=== PATIENT | female | born 1980 | race Caucasian/White ===

== ENCOUNTER 2017-11-09 10:42 | Emergency (ER) | payer OTHER ==
[~2017-11-09] VITALS: Ht 152.4 cm; Wt 96.4 kg
[~2017-11-09 10:42] MED LIST: CITA40TA12 PO; DICL75TA2 PO; FLUO40CA8 PO; FLV1 PO; LAMO25TA PO; MELA1CAP9 PO; PRED20TA PO; PRLSR20 PO; TRAZ-120 PO
[2017-11-09 10:45] VITALS: Ht 152.4 cm; Wt 96.4 kg
[2017-11-09] MEDS ORDERED: METHYLPREDNISOLONE 125 MG VIAL IV STA (11:14)
[2017-11-09] MEDS ORDERED: DiphenhydrAMINE HCL 50 MG/ML VIAL IV STA (11:14)
--- NOTE | 2017-11-09 11:32 | EMERGENCY ROOM VISIT NOTE ---
History First contact with patient: 11:02 Chief Complaint: ALLERGIC REACTION Stated Complaint: TOOTHACHE FROM EAR TO JAW, SWELLING OF TOUNGE History of Present Illness The patient is a 37 year old female who presents to the Emergency Room with complaints of an allergic reaction that started this morning. The patient was put on meloxicam for her back. She has taken a few doses throughout the course of this week. She thinks that she is experiencing a fullness in her throat and swelling of her tongue that started approximately 30 minutes after taking the medication this morning. She denies any shortness of breath. She denies any difficulty swallowing. No rash or itching. She denies any other new soaps, lotions or detergents., The patient is also reporting a toothache coming from a right lower molar for the last 4 nights. She has used Orajel with minimal relief. She denies any fever or chills. No foul drainage in the mouth. She has had a difficult time sleeping due to the pain. The pain radiates to the right ear Review of Systems 10 system review performed and negative unless noted in HPI or below Past Medical/Surgical History Medical Problems: (1) Bulging disc (2) Carpal tunnel syndrome (3) Psoriasis Surgical Problems: (1) History of cholecystectomy (2) S/P carpal tunnel release Family History FH: heart disease Hypertension Social History Smoking Status: Current Every Day Smoker Alcohol Use: none Marital Status: single Housing Status: lives alone Occupation Status: employed Current/Historical Medications Scheduled Citalopram Hydrobromide (Celexa), 40 MG PO QAM Clindamycin Hcl (Cleocin), 300 MG PO TID Cyclobenzaprine Hcl (Flexeril), 5 MG PO TID Diclofenac Sodium (Voltaren), 75 MG PO BID Fluoxetine Hcl (Prozac), 40 MG PO DAILY Folic Acid (Folic Acid), 1 MG PO DAILY Lamotrigine (Lamictal), 75 MG PO DAILY Melatonin (Melatonin), 20 MG PO HS Omeprazole (Prilosec), 20 MG PO DAILY Prednisone (Prednisone), 50 MG PO DAILY Trazodone Hcl (Desyrel), 50 MG PO HS Venlafaxine Hcl (Effexor), 150 MG PO DAILY Scheduled PRN Hydrocodone/Acetaminophen 5MG/325MG ([place] 5MG/325MG), 1-2 TABLET PO Q4H PRN for Pain Physical Exam Vital Signs Date Time Temp Pulse Resp B/P (MAP) Pulse Ox O2 Delivery O2 Flow Rate FiO2 11/09/17 14:15 37.0 78 18 130/98 97 11/09/17 13:07 97 Room Air 11/09/17 12:55 78 18 130/98 97 Room Air 11/09/17 10:45 37.0 91 17 150/100 99 Room Air Physical Exam VITALS: Vitals are noted on the nurse's note and reviewed by myself. Vital signs stable. GENERAL: 37-year-old female, in no acute distress, nondiaphoretic, well- developed well-nourished. SKIN: The skin was without rashes, erythema, edema, or bruising. HEAD: Normocephalic atraumatic. EYES: Conjunctivae without injection, sclerae without icterus. Extraocular movements intact. NOSE: Patent, turbinates without inflammation or discharge. No sinus tenderness. MOUTH: Mucous membranes moist. Tonsils are not enlarged. Pharynx without erythema or exudate. Uvula midline. Airway patent. Tongue does not deviate. No swelling of the tongue. No swelling of the oral mucosa. The right lower molar is extremely carious and fractured. The gum is slightly swollen around it. No pointing. No active drainage. NECK: Supple without nuchal rigidity. Lymphadenopathy in the submandibular chain bilaterally.. Cervical spine is nontender. No JVD. HEART: Regular rate and rhythm without murmurs gallops or rubs. LUNGS: Clear to auscultation bilaterally without wheezes, rales or rhonchi. No accessory muscle use. MUSCULOSKELETAL: No muscle atrophy, erythema, or edema noted. Strength 5/5 throughout. NEURO: Patient was alert and oriented to person place and time. Normal sensation to touch. No focal neurological deficits. Medical Decision & Procedures Laboratory Results 11/09/17 11:30 Red Blood Count 4.17, Mean Corpuscular Volume 84.9, Mean Corpuscular Hemoglobin 28.1, Mean Corpuscular Hemoglobin Concent 33.1, Mean Platelet Volume 10.9, Neutrophils (%) (Auto) 62.3, Lymphocytes (%) (Auto) 26.2, Monocytes (%) (Auto) 8.5, Eosinophils (%) (Auto) 2.1, Basophils (%) (Auto) 0.4, Neutrophils # (Auto) 4.66, Lymphocytes # (Auto) 1.96, Monocytes # (Auto) 0.64, Eosinophils # (Auto) 0.16, Basophils # (Auto) 0.03 11/09/17 11:30 Test 11/09/17 11:30 White Blood Count 7.49 K/uL (4.8-10.8) Red Blood Count 4.17 M/uL (4.2-5.4) Hemoglobin 11.7 g/dL (12.0-16.0) Hematocrit 35.4 % (37-47) Mean Corpuscular Volume 84.9 fL (80-100) Mean Corpuscular Hemoglobin 28.1 pg (25-34) Mean Corpuscular Hemoglobin Concent 33.1 g/dl (32-36) Platelet Count 248 K/uL (130-400) Mean Platelet Volume 10.9 fL (7.4-10.4) Neutrophils (%) (Auto) 62.3 % Lymphocytes (%) (Auto) 26.2 % Monocytes (%) (Auto) 8.5 % Eosinophils (%) (Auto) 2.1 % Basophils (%) (Auto) 0.4 % Neutrophils # (Auto) 4.66 K/uL (1.4-6.5) Lymphocytes # (Auto) 1.96 K/uL (1.2-3.4) Monocytes # (Auto) 0.64 K/uL (0.11-0.59) Eosinophils # (Auto) 0.16 K/uL (0-0.5) Basophils # (Auto) 0.03 K/uL (0-0.2) RDW Standard Deviation 42.0 fL (36.4-46.3) RDW Coefficient of Variation 13.6 % (11.5-14.5) Immature Granulocyte % (Auto) 0.5 % Immature Granulocyte # (Auto) 0.04 K/uL (0.00-0.02) Anion Gap 4.0 mmol/L (3-11) Est Creatinine Clear Calc Drug Dose 94.0 ml/min Estimated GFR () 100.7 Estimated GFR (Non- 86.9 BUN/Creatinine Ratio 4.8 (10-20) Calcium Level 8.5 mg/dl (8.5-10.1) Medications Administered Medications (Trade) Dose Ordered Sig/Darby Route Start Time Stop Time Status Last Admin Dose Admin Methylprednisolone Sodium Succinate (Solu-Medrol IV) 125 mg NOW STAT IV 11/09/17 11:14 11/09/17 11:16 DC 11/09/17 11:40 125 MG Diphenhydramine HCl (Benadryl Inj) 25 mg NOW STAT IV 11/09/17 11:14 11/09/17 11:16 DC 11/09/17 11:40 25 MG Acetaminophen/ Hydrocodone Bitart ([place] 5/325 Tab) 1 tab ONE STAT PO 11/09/17 12:38 11/09/17 12:39 DC 11/09/17 12:54 1 TAB ED Course Patient was seen and examined Vital signs including blood pressure were reviewed medications list was verified with patient Labs were obtained, and a saline lock was established The patient was medicated with Solu-Medrol 125 mg IV and Benadryl 25 mg IV Upon reevaluation, the patient said that her symptoms were better, but she was still complaining of tooth pain. She was ordered [place] Upon reevaluation, the pain was slightly better. She denies any swelling of her tongue. No difficulty swallowing. She was comfortable being discharged home. I reviewed discharge instructions the patient. They voiced understanding and had no further questions. Medical Decision Differential diagnosis: Allergic reaction, anxiety, anaphylaxis, angioedema, dental caries, periapical abscess, cellulitis This patient is a 37-year-old female that presents to the emergency department complaining of symptoms of an allergic reaction. She notes a fullness in the throat. She also thought that her tongue was swelling. On exam, I cannot appreciate any swelling of the oral mucosa or tongue. Airway was patent. She does have a fractured right lower molar that appears to be infected. The patient was treated with Solu-Medrol and Benadryl. She was observed for approximately 3 hours in the emergency department with no signs of significant allergic reaction. She will be put on antibiotics for her tooth. She was instructed to follow-up with a dentist as soon as possible. She also will discontinue meloxicam This chart was completed in part utilizing [employer] Voice Recognition software. Attempts were made to minimize the grammatical errors, random word insertions, pronoun errors and incomplete sentences. Any formal questions or concerns about the content, text or information contained within the body of this dictation should be directly addressed to the provider for clarification. Medication Reconcilliation Current Medication List: was personally reviewed by me Blood Pressure Screening Patient's blood pressure: Elevated blood pressure Blood pressure disposition: Did not require urgent referral Impression Primary Impression: Adverse reaction to drug Additional Impression: Pain, dental Departure Information Dispostion Home / Self-Care Condition GOOD Prescriptions Prednisone (Prednisone) 50 Mg Tab 50 MG PO DAILY for 4 Days, #4 TAB Prov: Kiley Navarro PA-C 11/09/17 Clindamycin Hcl (CLEOCIN) 300 Mg Cap 300 MG PO TID for 7 Days, #21 CAP Prov: Kiley Navarro PA-C 11/09/17 Hydrocodone/Acetaminophen 5MG/325MG ([place] 5MG/325MG) Tab 1-2 TABLET PO Q4H Y for Pain, #15 TAB For Initial Treatment Prov: Kiley Navarro PA-C 11/09/17 Referrals Courtney Robbins D.O. (PCP) Patient Instructions My [facility] Additional Instructions You were evaluated in the emergency department for an allergic reaction. This is possibly due to meloxicam. Please stop taking this. Please take the entire course of prednisone Please take Benadryl 50 mg every 8 hours for at least the next 24 hours. Then, you may take it on an as-needed basis please take the ENTIRE course of antibiotics. Please eat yogurt or take a probiotic daily with this medication. [place] 1-2 tabs every 4 hours for severe pain. Do not drink alcohol or drive while taking this medication. This may be taken with ibuprofen, but avoid Tylenol. Please continue Orajel Call your dentist first thing tomorrow morning for a follow-up appointment Please do not hesitate to return to the emergency department with any new, worsening or concerning symptoms; especially, difficulty breathing, swelling of the face, lips or tongue It was a pleasure participating in your care today. Problem Qualifiers
[2017-11-09 11:41] LABS: BASO % 0.4 %; BASO ABS # 0.03 K/uL (0-0.2); EOS % 2.1 %; EOS ABS # 0.16 K/uL (0-0.5); HEMATOCRIT 35.4 % (37-47); HEMOGLOBIN 11.7 g/dL (12.0-16.0); IG# 0.04 K/uL (0.00-0.02); LYMPH % 26.2 %; LYMPH ABS # 1.96 K/uL (1.2-3.4); MEAN CELL VOLUME 84.9 fL (80-100); MEAN CORPUSCULAR HEMOGLOBIN 28.1 pg (25-34); MEAN CORPUSCULAR HGB CONC 33.1 g/dl (32-36); MEAN PLATELET VOLUME 10.9 fL (7.4-10.4); MONO % 8.5 %; MONO ABS # 0.64 K/uL (0.11-0.59); NEUT % 62.3 %; NEUT ABS # 4.66 K/uL (1.4-6.5); PLATELET COUNT 248 K/uL (130-400); RED CELL DISTRIBUTION WIDTH CV 13.6 % (11.5-14.5); WHITE BLOOD COUNT 7.49 K/uL (4.8-10.8)
[2017-11-09] MEDS ORDERED: CYCL5TAB PO (11:47)
[2017-11-09] MEDS ORDERED: EFF75 PO (11:47)
[2017-11-09 11:57] LABS: CALCIUM 8.5 mg/dl (8.5-10.1); CREATININE 0.86 mg/dl (0.60-1.20); POTASSIUM 3.7 mmol/L (3.5-5.1)
[2017-11-09] MEDS ORDERED: HYDROCODONE/ACETAMIN 5/325MG TAB PO STA (12:38)
[2017-11-09] MEDS ORDERED: HYDR-5688 PO (13:49)
[2017-11-09] MEDS ORDERED: CLIN300C2 PO (13:49)
[2017-11-09] MEDS ORDERED: PRED50TA PO (13:50)
[2017-11-09 14:15] VITALS: BP 130/98; PULSE 78; TEMP 37; O2SAT 97
== END 2017-11-09 14:16 | disposition home or self-care (01) ==
LOC: C.EDB 10:44 → C.EDC 14:16
DX: T78.40XA Allergy, unspecified, initial encounter (principal); S02.5XXA Fracture of tooth (traumatic), initial encounter for closed fracture; X58.XXXA Exposure to other specified factors, initial encounter; K02.9 Dental caries, unspecified; R59.0 Localized enlarged lymph nodes; L40.9 Psoriasis, unspecified; F17.200 Nicotine dependence, unspecified, uncomplicated

== ENCOUNTER 2017-11-12 19:42 | Emergency (ER) | payer OTHER ==
[~2017-11-12] VITALS: Ht 152.4 cm; Wt 97.6 kg
[~2017-11-12 19:42] MED LIST changes: +CLIN300C2 PO; +CYCL5TAB PO; +EFF75 PO; +HYDR-5688 PO; -PRED20TA PO; +PRED50TA PO
[2017-11-12 19:46] VITALS: TEMP 36.3; Ht 152.4 cm; Wt 97.6 kg
--- NOTE | 2017-11-12 19:55 | EMERGENCY ROOM VISIT NOTE ---
History Report prepared by Raman: Jaciel Singh Under the Supervision of: Dr. Jose M Ramos M.D. First contact with patient: 19:49 Chief Complaint: ALLERGIC REACTION Stated Complaint: TONGUE AND THROAT SWOLLEN History of Present Illness The patient is a 37 year old white female with a past medical history of a bulging disk, carpal tunnel syndrome, psoriasis, and a cholecystectomy who presents to the ED with a cc of constant swelling to her tongue beginning 1.5 weeks ago. Positive numbness and swelling to her tongue, difficulty swallowing, shortness of breath. Pt recently starting Flexeril, Meloxicam, and Clindamycin. She stopped taking the Clindamycin and Meloxicam. Pt has had Flexeril before and did not have trouble with it. She is on Clindamycin for a tooth infection. Negative difficulty drinking, changes in cream, detergent, and diet. EMR review shows the patient was in the ED and evaluated on the . Source of History: patient Onset: 1.5 weeks ago Position: tongue Quality: other (swelling) Timing: constant Associated Symptoms: + SOB, + numbness (to her tongue) Note: Associated symptoms: difficultly swallowing Denies: trouble drinking, changes in cream, detergent, or diet Review of Systems See HPI for pertinent positives and negatives. A total of ten systems were reviewed and were otherwise negative. Past Medical & Surgical Medical Problems: (1) Bulging disc (2) Carpal tunnel syndrome (3) Psoriasis Surgical Problems: (1) History of cholecystectomy (2) S/P carpal tunnel release Family History FH: heart disease Hypertension Social History Smoking Status: Current Every Day Smoker Alcohol Use: none Marital Status: single Housing Status: lives alone Occupation Status: employed Current/Historical Medications Scheduled Citalopram Hydrobromide (Celexa), 40 MG PO QAM Diclofenac Sodium (Voltaren), 75 MG PO BID Fluoxetine Hcl (Prozac), 40 MG PO DAILY Folic Acid (Folic Acid), 1 MG PO DAILY Lamotrigine (Lamictal), 150 MG PO DAILY Melatonin (Melatonin), 20 MG PO HS Omeprazole (Prilosec), 20 MG PO DAILY Trazodone Hcl (Desyrel), 50 MG PO HS Venlafaxine Hcl (Effexor), 150 MG PO DAILY Scheduled PRN Cyclobenzaprine Hcl (Flexeril), 5 MG PO TID PRN for Muscle Spasms Allergies Coded Allergies: Penicillins (Verified Allergy, Severe, SWELLING, 11/12/17) SWELLING Cephalexin (Verified Allergy, Intermediate, DIZZINESS, 11/12/17) Sulfamethoxazole (Verified Allergy, Intermediate, 11/12/17) Trimethoprim (Verified Allergy, Intermediate, 11/12/17) BEE STING (Verified Allergy, Mild, SWELLING, 11/12/17) Allen (Verified Allergy, Mild, HIVES, 11/12/17) Sulfa Drugs (Verified Allergy, Unknown, RASH, 11/12/17) Physical Exam Vital Signs Date Time Temp Pulse Resp B/P (MAP) Pulse Ox O2 Delivery O2 Flow Rate FiO2 11/12/17 21:44 98 18 138/86 95 11/12/17 19:51 96 Room Air 11/12/17 19:46 36.3 117 18 141/89 96 Room Air Physical Exam GENERAL: Awake, alert, well-appearing, NAD HENT: Normocephalic, atraumatic. EYES: Normal conjunctiva. Sclera non-icteric. MOUTH: Poor dentition. No submandibular or sublingual swelling. No tonsillar swelling or uvular deviation. Non-stridulous. NECK: Supple. No nuchal rigidity. FROM. RESPIRATORY: CTAB, no rhonchi, wheezing, crackles CARDIAC: Tachy and regular, no MRG ABDOMEN: Soft, NTND, BS+ MSK: No chest wall TTP, no LE edema NEURO: GCS 15, CN 2-12 intact, moves all 4s on command SKIN: No rash or jaundice noted. Medical Decision & Procedures ER Provider Diagnostic Interpretation: X-ray: Per my interpretation, radiologist review. CHEST ONE VIEW PORTABLE CLINICAL HISTORY: 37 years-old Female presenting with sob. TECHNIQUE: Portable upright AP view of the chest was obtained. COMPARISON: 03/16/2015. FINDINGS: Cardiomediastinal silhouette normal. Lungs and pleural spaces clear. Osseous structures normal. Upper abdomen normal. IMPRESSION: 1. No acute cardiopulmonary disease. Electronically signed by: Rasta Leon M.D. 11/12/2017 8:14 PM Dictated Date/Time: 11/12/2017 8:14 PM Medications Administered Medications (Trade) Dose Ordered Sig/Darby Route Start Time Stop Time Status Last Admin Dose Admin Acetaminophen (Tylenol Tab) 1,000 mg ONE STAT PO 11/12/17 20:01 11/12/17 20:03 DC 11/12/17 20:18 1,000 MG Menthol (Nice Noreen) 1 noreen NOW STAT NOREEN 11/12/17 20:01 11/12/17 20:03 DC 11/12/17 20:17 24 NOREEN Dexamethasone Sodium Phosphate (Dexamethasone Inj Pf) 10 mg NOW ONCE PO 11/12/17 20:15 11/12/17 20:16 DC 11/12/17 20:18 10 MG ED Course 1950: The patient was evaluated in room B02. A complete history and physical exam was performed. 2107: I reevaluated the patient. Discussed results and discharge instructions: she verbalized understanding and agreement. The patient is ready for discharge. Medical Decision Nursing notes reviewed. Ancillary studies and prior records reviewed. The patient is a 37 year old white female with a past medical history of a bulging disk, carpal tunnel syndrome, psoriasis, and a cholecystectomy who presents to the ED with a cc of constant swelling to her tongue beginning 1.5 weeks ago. Differential diagnosis: Etiologies such as allergic reaction, anaphylaxis, urticaria, Solomon-Wilian syndrome, toxic epidermal necrolysis, erythema multiforme, cellulitis, as well as others were entertained. Patient was seen and evaluated the bedside. Patient was complaining of some throat tightening as well as some iodine aphasia. 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 The patient has no pain with neck extension. Patient has full range of motion of the neck. Patient was initially little tachycardic. Patient also states that she states that all this began when she started taking some antibiotics as well as Flexeril. Patient was given some medications and the patient did have a chest x-ray completed. Chest x-ray is clear. I did discuss that the patient should stop taking the antibiotics as well as the Flexeril. Do not notice any need for antibiotics at this time as I do not see an obvious dental infection. The patient does have some poor dentition and she is scheduled to see a dentist. Believe the patient is suitable for outpatient follow-up and treatment at this time. Patient was given strict follow-up, discharge, and return precautions. All questions were answered. Patient was deemed suitable for outpatient follow- up at this time. Patient agreed with the plan of care and was safely discharged home. Medication Reconcilliation Current Medication List: was personally reviewed by me Blood Pressure Screening Patient's blood pressure: Normal blood pressure Blood pressure disposition: Did not require urgent referral Impression Primary Impression: Throat pain Scribe Attestation The scribe's documentation has been prepared under my direction and personally reviewed by me in its entirety. I confirm that the note above accurately reflects all work, treatment, procedures, and medical decision making performed by me. Departure Information Dispostion Home / Self-Care Referrals Courtney Robbins D.O. (PCP) Forms HOME CARE DOCUMENTATION FORM, IMPORTANT VISIT INFORMATION Patient Instructions My [facility] Sore Throat - [facility] Additional Instructions Please return to the emergency department if you have worsening or recurrent symptoms not amenable to at-home treatment. Please call for a follow-up appointment with her primary care physician. Please take your medications as prescribed. If you have other concerns and/or complaints please feel free to also call your primary care physician's office or return the ED for further evaluation, management, and treatment. You may take 800 mg Ibuprofen every 6 hours as needed for pain/fever with food. You may take tylenol 1000 mg every 6 hours as needed for pain. You may take motrin and tylenol separately or at the same time. Please stop taking your antibiotics as well as the Flexeril. You have been examined and treated today on an emergency basis only. This is not a substitute for, or an effort to provide, complete comprehensive medical care. It is impossible to recognize and treat all injuries or illnesses in a single emergency department visit. It is therefore important that you follow up closely with [facility], your PCP, and/or your specialist(s). Call as soon as possible for an appointment. Thank you for your time and consideration. I look forward to speaking with you again soon. Please don't hesitate to call us if you have any questions.
[2017-11-12] MEDS ORDERED: ACETAMINOPHEN 500 MG TAB PO STA (20:01)
[2017-11-12] MEDS ORDERED: COUGH DROP (SUGAR FREE) LOZ 24 LOZ/1 BOX LOZ STA (20:01)
[2017-11-12] MEDS ORDERED: DEXAMETHASONE **PF** INJ 10 MG/ML VIAL PO ONE (20:15)
--- NOTE | 2017-11-12 20:15 | DIAGNOSTIC IMAGING REPORT ---
CHEST ONE VIEW PORTABLE CLINICAL HISTORY: 37 years-old Female presenting with sob. TECHNIQUE: Portable upright AP view of the chest was obtained. COMPARISON: 03/16/2015. FINDINGS: Cardiomediastinal silhouette normal. Lungs and pleural spaces clear. Osseous structures normal. Upper abdomen normal. IMPRESSION: 1. No acute cardiopulmonary disease. Electronically signed by: Rasta Leon M.D. 11/12/2017 8:14 PM Dictated Date/Time: 11/12/2017 8:14 PM
[2017-11-12] MEDS ORDERED: LMC/150 PO (20:49)
[2017-11-12 21:44] VITALS: BP 138/86; PULSE 98; O2SAT 95
== END 2017-11-12 21:45 | disposition home or self-care (01) ==
LOC: C.EDB 19:44
DX: R07.0 Pain in throat (principal); R47.01 Aphasia; K08.89 Other specified disorders of teeth and supporting structures; R00.0 Tachycardia, unspecified; L40.9 Psoriasis, unspecified; F17.200 Nicotine dependence, unspecified, uncomplicated; Z90.49 Acquired absence of other specified parts of digestive tract; Z88.0 Allergy status to penicillin; Z88.1 Allergy status to other antibiotic agents; Z88.2 Allergy status to sulfonamides; Z91.030 Bee allergy status; Z91.018 Allergy to other foods

== ENCOUNTER → 2018-02-23 | Outpatient (CLI) | payer OTHER ==
[~2018-02-23] MED LIST changes: -CLIN300C2 PO; -HYDR-5688 PO; -LAMO25TA PO; +LMC/150 PO; -PRED50TA PO; -TRAZ-120 PO; +TRAZ1TAB48 PO
[2018-02-23 15:45] LABS: ALBUMIN 3.9 gm/dl (3.4-5.0); ALKALINE PHOSPHATASE 58 U/L (45-117); ALT/SGPT 18 U/L (12-78); AST/SGOT 11 U/L (15-37); BLOOD UREA NITROGEN 9 mg/dl (7-18); CALCIUM 9.2 mg/dl (8.5-10.1); CARBON DIOXIDE 26 mmol/L (21-32); CREATININE 1.17 mg/dl (0.60-1.20); GLUCOSE 99 mg/dl (70-99); POTASSIUM 3.5 mmol/L (3.5-5.1); SODIUM 137 mmol/L (136-145); TOTAL PROTEIN 7.4 gm/dl (6.4-8.2)
== END | disposition home or self-care (01) ==
LOC: C.CPL 12:53
PROVIDERS: ATTEND Psychiatry & Neurology Psychiatry
DX: F31.9 Bipolar disorder, unspecified (principal); F41.1 Generalized anxiety disorder

== ENCOUNTER 2024-02-25 11:33 | Inpatient (IN) ==
--- OUTSIDE RECORDS SUMMARY | 2024-02-25 11:38 | External Medical Summary ---
Author Name Unknown Address Unknown Organization [id number]:[facility] [place] [facility] [address] [place], [place] [address] Laboratory Report Ordering Provider Test Date Status VENKATESH JIM 09/13/2023 09:35:03 Final Observation Date Value Abnormality Reference (Units ) Status WBC, Total 09/13/2023 09:35:03 3.74 Below low normal 4.00-10.80 (K/uL) Final RBC 09/13/2023 09:35:03 4.88 3.85-5.15 (M/uL) Final Hemoglobin 09/13/2023 09:35:03 13.8 12.0-15.3 (g/dL) Final HCT 09/13/2023 09:35:03 42.4 36.0-45.2 (%) Final MCV 09/13/2023 09:35:03 86.9 81.5-97.5 (fL) Final MCH 09/13/2023 09:35:03 28.3 27.0-34.0 (pg) Final MCHC 09/13/2023 09:35:03 32.5 32.0-36.0 (g/dL) Final RDW 09/13/2023 09:35:03 13.6 11.5-15.5 (%) Final Platelets 09/13/2023 09:35:03 250 140-400 (K/uL) Final MPV 09/13/2023 09:35:03 11.6 6.6-11.1 (fL) Final Nucleated erythrocytes/100 leukocytes [Ratio] in Blood by Automated count 09/13/2023 09:35:03 0 <=0 (/100 WBCs) Final Performing Location [facility] [place] [address] [place] [address]
--- OUTSIDE RECORDS SUMMARY | 2024-02-25 11:38 | External Medical Summary ---
Author Name Unknown Address Unknown Organization [id number]:[facility]ORY [facility] [address] [place] [address] Laboratory Report Ordering Provider Test Date Status VENKATESH JIM 09/13/2023 09:35:03 Final Observation Date Value Abnormality Reference (Units ) Status SYNC LEUKOCYTES IN BLOOD BY AUTOMATED COUNT 09/13/2023 09:35:03 3.74 Below low normal 4.00-10.80 (K/uL) Final Segs 09/13/2023 09:35:03 49.4 40.0-75.0 (%) Final Lymphs % 09/13/2023 09:35:03 31.6 18.0-42.0 (%) Final Monos 09/13/2023 09:35:03 15.8 Above high normal 1.0-11.0 (%) Final Eosinophils 09/13/2023 09:35:03 1.6 0.0-6.0 (%) Final Basos 09/13/2023 09:35:03 1.1 0.0-2.0 (%) Final Immature Granulocyte, Percent 09/13/2023 09:35:03 0.5 0.0-2.0 (%) Final Absolute Segs 09/13/2023 09:35:03 1.85 1.80-7.70 (K/uL) Final Lymphs, absolute 09/13/2023 09:35:03 1.18 1.00-4.80 (K/ul) Final Monos, Abs 09/13/2023 09:35:03 0.59 0.00-1.10 (K/uL) Final Eos, Abs 09/13/2023 09:35:03 0.06 0.00-0.70 (K/uL) Final Basos, Abs 09/13/2023 09:35:03 0.04 0.00-0.20 (K/uL) Final Immature Granulocytes, Number 09/13/2023 09:35:03 0.02 0.00-0.20 (K/uL) Final Performing Location [facility] [place] [address] [facility] [address]
--- OUTSIDE RECORDS SUMMARY | 2024-02-25 11:38 | External Medical Summary ---
Author Name Unknown Address Unknown Organization [id number]:[place] [place] [address] [place] [address] Laboratory Report Ordering Provider Test Date Status VENKATESH JIM 09/13/2023 09:35:03 Final Observation Date Value Abnormality Reference (Units ) Status TSH 09/13/2023 09:35:03 0.65 0.27-4.20 (uIU/mL) Final Performing Location [facility]ORY [facility] - [address] [place] [address]
--- OUTSIDE RECORDS SUMMARY | 2024-02-25 11:38 | External Medical Summary ---
Author Name Unknown Address Unknown Organization [id number]:LABORATORY [facility] - [address] [place] [address] Laboratory Report Ordering Provider Test Date Status DIANDRASTEPHIEDarci 09/13/2023 09:35:03 Final Observation Date Value Abnormality Reference (Units ) Status T4, Free 09/13/2023 09:35:03 1.0 0.9-1.7 (n g/dL) Final Performing Location LABORATORY [facility] - [address] [place] [address]
--- OUTSIDE RECORDS SUMMARY | 2024-02-25 11:38 | External Medical Summary ---
Author Name Unknown Address Unknown Organization [id number]:LABORATORY [facility] [place] - [address] [place] [address] Laboratory Report Ordering Provider Test Date Status VENKATESH JIM 09/13/2023 09:35:03 Final Observation Date Value Abnormality Reference (Units ) Status BUN 09/13/2023 09:35:03 9 6-20 (mg/dL) Final Creatinine 09/13/2023 09:35:03 1.1 Above high normal 0.5-1.0 (mg/dL) Final Glomerular filtration rate/1.73 sq M.predicted [Volume Rate/Area] in Serum, Plasma or Blood by Creatinine-based formula (CKD-EPI) 09/13/2023 09:35:03 64 >=60 (mL/min) Final eGFR is calculated based on the CKD-EPI 2020 equation SODIUM 09/13/2023 09:35:03 136 135-146 (m mol/L) Final Potassium 09/13/2023 09:35:03 4.2 3.5-5.1 (m mol/L) Final Cl 09/13/2023 09:35:03 101 98-107 (mm ol/L) Final CO2 09/13/2023 09:35:03 23 22-32 (mmo l/L) Final Anion gap 09/13/2023 09:35:03 12 7-15 (mmol /L) Final Glucose 09/13/2023 09:35:03 93 70-120 (mg /dL) Final Albumin 09/13/2023 09:35:03 4.0 3.8-5.0 (g /dL) Final AST (Aspartate aminotransferase) 09/13/2023 09:35:03 21 10-35 (U/L) Final Alk Phos 09/13/2023 09:35:03 52 35-130 (U/ L) Final Bilirubin, Total 09/13/2023 09:35:03 0.5 <=1 .2 (mg/dL) Final Calcium 09/13/2023 09:35:03 9.0 8.4-10.2 ( mg/dL) Final Protein 09/13/2023 09:35:03 6.5 6.0-8.3 (g /dL) Final ALT (Alanine aminotransferase) 09/13/2023 09:35:03 21 10-35 (U/L) Final Performing Location LABORATORY [facility] [place] - [address] [facility] [address]
--- OUTSIDE RECORDS SUMMARY | 2024-02-25 11:38 | External Medical Summary | Summary of Care ---
Author Name Unknown Organization [facility] Address [address] [place] [address] Phone [phone] Care Team Providers Care Systems Development Consultant Name Role Phone Candis Fink PA-C Primary Care Provider [phone] Reason for Visit * Reason Comments eRx-Medication Refill Encounter Details Date Type Department Care Team (Late st Contact Info) Description 12/07/2023 Refill [place] [address] [place] [address] Candis Fink PA-C [address] [place] [address] Gastroesophageal reflux disease without esophagitis Allergies Active Allergy Reactions Criticality Noted Date Comments Cephalexin 08/25/2017 Lightheaded and dizzy Meloxicam Edema Other High 11/09/2017 Penicillins 08/10/2001 Throat swelling Sulfa Antibiotics 08/10/2001 Rash documented as of this encounter (statuses as of 12/08/2023) Medications Medication Sig Dispensed Refills Start Date End Date Status ARIPiprazole (ABILIFY) 10 MG Tablet Take 1 Tablet by mouth in the morning. 0 01/30/2019 Active Clobetasol Propionate 0.05 % External Ointment (Temovate)Indicat ions:Plaque psoriasis Apply 2x daily (or more if itchy instead of scratching) to psoriasis spots on trunk/arms/legs /scalp until resolved 60 g 2 12/02/2021 Active Ketoconazole 2 % External Shampoo (Nizoral)Indicati ons:Seborrheic dermatitis of scalp Massage into scalp and rinse out after 5-10 minutes. Do 3x weekly, and can use own shampoo/conditi roderick afterwards. 120 mL 3 12/02/2021 Active Clobetasol Propionate 0.05 % External SolutionIndicatio ns:Plaque psoriasis APPLY TOPICALLY TO AREAS ON SCALP TWICE DAILY (OR MORE IF ITCHY INSTEAD OF SCRATHCHING) UNTIL RESOLVED 50 mL 0 11/07/2022 Active methylPREDNISolon e 4 MG Oral Tablet Therapy Pack (Medrol Dosepack) follow package directions 21 Tablet 0 11/24/2022 Active Fluticasone Propionate 50 MCG/ACT Nasal Suspension (Flonase) Administer 2 Sprays into each nostril in the morning. 16 g 1 11/29/2022 Active Omeprazole 20 MG Oral Capsule Delayed Release (PriLOSEC)Indicat ions:Gastroesopha geal reflux disease without esophagitis Take 1 capsule by mouth in the morning 30 Capsule 2 12/08/2023 Active Omeprazole 20 MG Oral Capsule Delayed Release (PriLOSEC)Indicat ions:Gastroesopha geal reflux disease without esophagitis Take 1 Capsule by mouth in the morning. 90 Capsule 2 11/29/2022 4 Discontinued documented as of this encounter (statuses as of 12/08/2023) Active Problems Problem Noted Date Diagnosed Date Stress incontinence 11/29/2022 Restless legs syndrome 11/29/2022 Major depressive disorder with single episode Gastroesophageal reflux disease without esophagi tis 11/25/2022 Body mass index (BMI) of 40.0 to 44.9 in adult 0 01/07/2019 Overview: Per Obesity protocol Chronic bilateral back pain 01/08/2018 Lumbar spine pain 12/01/2017 Carpal tunnel syndrome 02/19/2014 Tobacco use disorder 12/15/2003 Psoriasis Depression documented as of this encounter (statuses as of 12/08/2023) Resolved Problems Problem Noted Date Diagnosed Date Resolved Date Encounter for supervision of other normal 09/20/2005 12/29/2005 Overview: ICD-10 update of inactive term Encounter for supervision of other normal 01/05/2004 08/10/2004 Overview: ICD-10 update of inactive term Absence of menstruation 12/15/200307/31 RH ISOIMMUNIZAT-ANTEPART 12/15/200305/2005 Normal , first 08/10/200111/28 documented as of this encounter (statuses as of 12/08/2023) Immunizations Name Administration Dates Next Due TDAP (age 11 and older)(Adacel) 06/14/2013 documented as of this encounter Social History Tobacco Use Types Packs/Day Years Used Date Smoking Tobacco: Every Day Cigarettes 0.5 16 Smokeless Tobacco: Never Comments:1 pack daily Alcohol Use Standard Drinks/Week Comments No 0 (1 standard drink = 0.6 oz pur e alcohol) PHQ-2 Answer Date Recorded PHQ-2 Score -1 07/26/2018 Sex and Gender Information Value Date Recorded Sex Assigned at Not on file Gender Identity Not on file Sexual Orientation Not on file Job Start Date Occupation Industry Not on file Not on file Not on file documented as of this encounter Miscellaneous Notes * Telephone Encounter - Darron Perez PHARM Tech - 12/08/2023 2:45 PM EDT Received message from [facility] regarding patient needing appointment. Call Placed, Left message on voicemail to call back and schedule appointment. Thank you, Darron Perez Manager Of Purchasing [facility] [place] 12/08/2023, 2:45 PM * Telephone Encounter - Noelle Wilson [facility] - 12/08/2023 1:27 PM EDTSigned Prescriptions: Disp Refills Omeprazole 20 MG Oral Capsule Delayed Rele*30 Cap*2 Sig: Take 1 capsule by mouth in the morning Authorizing Provider: CANDIS FINK User: NOELLE WILSON * Telephone Encounter - Noelle Wilson RPh - 12/08/2023 1:27 PM EDT Please contact patient so that an appointment can be scheduled with her PRIMARY CARE provider. Refill authorized to hold patient over in the mean time. Last Visit: 11/29/2022 (in office), Visit date not found (telemedicine) Next Visit: Visit date not found Noelle Mercer ron Clinical Pharmacist [facility] (Formerly [facility]) [phone] documented in this encounter Plan of Treatment Health Maintenance Due Date Last Done Comments Pneumococcal Vaccine: Pediatrics (0 to 5 Years) and At-Risk Patients (6 to 64 Years) (1 of 2 - PCV) 1987 Hepatitis B (1 of 3 - 19+ 3-dose series) 2000 HPV/Co-Test 2011 Cervical Cancer Screening 02/15/2022 Pap Smear 02/15/2022 02/15/2019, 08/01, 09/20/2005, Additional history exists COVID-19 Vaccine ( - season) 2023 DTaP,Tdap,and Td Vaccines (2 - Td or Tdap) 06/14/2023 06/14/2013 Mammogram 12/23/2023 12/22/2022, 11/29, 12/07/2022, Additional history exists Influenza Vaccine (FLU shot) (Season Ended) 2024 Diabetes Screening 09/13/2026 09/13/2023, 0 09/13/2023, 12/23/2022, Additional history exists Lipid Panel 09/13/2028 09/13/2023, 11/29, 08/11/2021, Additional history exists GARDASIL-HPV IMMUNIZATION SERIES Aged Out No longer eligible based on patient's age to complete this topic MENINGOCOCCAL (MENACTRA/MENVEO) Aged Out No longer eligible based on patient's age to complete this topic documented as of this encounter Medical Devices Not on filedocumented as of this encounter Visit Diagnoses Diagnosis Gastroesophageal reflux disease without esophagitis Esophageal reflux documented in this encounter Advance Directives Latest Code Status on File Code Status Date Activated Date Inactivated Comments Full Code 10/18/2017 1:38 PM 10/18/2017 6:06 PM This order reflects the patients wishes and were consensually agreed upon. Care Teams Systems Development Consultant Relationship Specialty Start Date End Date Candis Fink PA-C [address] [facility] [place] [id number] PCP - General Physician Maintenance Mechanic Supervisor 11/29/22 documented as of this encounter
--- OUTSIDE RECORDS SUMMARY | 2024-02-25 11:38 | External Medical Summary ---
Author Name Unknown Address Unknown Organization K01:[facility] - [address] [facility] [address] Laboratory Report Ordering Provider Test Date Status VENKATESH JIM 09/13/2023 09:35:03 Final Observation Date Value Abnormality Reference (Units ) Status HbA1C 09/13/2023 09:35:03 5.4 4.0-5.6 (% ) Final The use of HbA1c to monitor glycemic status is based on normal hemoglobin and HbA composition. This test should not be used in patients with abnormal hemoglobin that affects the half life of the red blood cell or the in vivo glycation rates. Glucose, estimated average 09/13/2023 09:35:03 108 <126 (mg/dL) Final Performing Location LAB[facility]ATORY [facility] - [address] [place] [address]
--- OUTSIDE RECORDS SUMMARY | 2024-02-25 11:38 | External Medical Summary | Summary of Care ---
Author Name Unknown Organization [facility] Address [address] [place] [address] Phone [phone] Care Team Providers Care Milk Powder Grinder Name Role Phone Candis Fink PA-C Primary Care Provider [phone] Reason for Visit * Reason Comments Outpatient Testing Encounter Details Date Type Department Care Team (Late st Contact Info) Description 09/13/2023 9:30 AM EST Laboratory Laboratory, [place] [address] [place] [address] [facility] [address] [place] [address] Bipolar II disorder (HCC); Prolonged posttraumatic stress disorder; Encounter for long-term (current) use of other medications Allergies Active Allergy Reactions Criticality Noted Date Comments Cephalexin 08/25/2017 Lightheaded and dizzy Meloxicam Edema Other High 11/09/2017 Penicillins 08/10/2001 Throat swelling Sulfa Antibiotics 08/10/2001 Rash documented as of this encounter (statuses as of 09/13/2023) Medications Medication Sig Dispensed Refills Start Date End Date Status ARIPiprazole (ABILIFY) 10 MG Tablet Take 1 Tablet by mouth in the morning. 0 01/30/2019 Active Clobetasol Propionate 0.05 % External Ointment (Temovate)Indicatio ns:Plaque psoriasis Apply 2x daily (or more if itchy instead of scratching) to psoriasis spots on trunk/arms/legs/sc alp until resolved 60 g 2 12/02/2021 Active Ketoconazole 2 % External Shampoo (Nizoral)Indication s:Seborrheic dermatitis of scalp Massage into scalp and rinse out after 5-10 minutes. Do 3x weekly, and can use own shampoo/conditione r afterwards. 120 mL 3 12/02/2021 Active Clobetasol Propionate 0.05 % External SolutionIndications :Plaque psoriasis APPLY TOPICALLY TO AREAS ON SCALP TWICE DAILY (OR MORE IF ITCHY INSTEAD OF SCRATHCHING) UNTIL RESOLVED 50 mL 0 11/07/2022 Active methylPREDNISolone 4 MG Oral Tablet Therapy Pack (Medrol Dosepack) follow package directions 21 Tablet 0 11/24/2022 Active Omeprazole 20 MG Oral Capsule Delayed Release (PriLOSEC)Indicatio ns:Gastroesophageal reflux disease without esophagitis Take 1 Capsule by mouth in the morning. 90 Capsule 2 11/29/2022 Active Fluticasone Propionate 50 MCG/ACT Nasal Suspension (Flonase) Administer 2 Sprays into each nostril in the morning. 16 g 1 11/29/2022 Active documented as of this encounter (statuses as of 09/13/2023) Active Problems Problem Noted Date Diagnosed Date [...] as of this encounter (statuses as of 09/13/2023) Resolved Problems Problem Noted Date Diagnosed Date Resolved Date Encounter for supervision of other normal 09/20/2005 12/29/2005 Overview: ICD-10 update of inactive term Encounter for supervision of other normal 01/05/2004 08/10/2004 Overview: ICD-10 update of inactive term Absence of menstruation 12/15/200307/31 RH ISOIMMUNIZAT-ANTEPART 12/15/200305/2005 Normal , first 08/10/200111/28 documented as of this encounter (statuses as of 09/13/2023) Immunizations Name Administration Dates Next Due TDAP [...] on file documented as of this encounter Plan of Treatment Pending Results Name Type Priority Associated Diagnoses Date /Time CBC WITH WBC DIFFERENTIAL Lab Routine Bipolar II disorder (HCC) Prolonged posttraumatic stress disorder Encounter for long-term (current) use of other medications 09/13/2023 9:35 AM EST COMPREHENSIVE METABOLIC PANEL Lab Routine Bipolar II disorder (HCC) Prolonged posttraumatic stress disorder Encounter for long-term (current) use of other medications 09/13/2023 9:35 AM EST HEMOGLOBIN A1C Lab Routine Bipolar II disorder (HCC) Prolonged posttraumatic stress disorder Encounter for long-term (current) use of other medications 09/13/2023 9:35 AM EST LIPID PANEL WITH DIRECT LDL IF TG IS HIGH Lab Routine Bipolar II disorder (HCC) Prolonged posttraumatic stress disorder Encounter for long-term (current) use of other medications 09/13/2023 9:35 AM EST TSH Lab Routine Bipolar II disorder (HCC) Prolonged posttraumatic stress disorder Encounter for long-term (current) use of other medications 09/13/2023 9:35 AM EST T4, FREE Lab Routine Bipolar II disorder (HCC) Prolonged posttraumatic stress disorder Encounter for long-term (current) use of other medications 09/13/2023 9:35 AM EST CBC Lab Routine Bipolar II disorder (HCC) Prolonged posttraumatic stress disorder Encounter for long-term (current) use of other medications 09/13/2023 9:35 AM EST DIFFERENTIAL, AUTOMATED Lab Routine Bipolar II disorder (HCC) Prolonged posttraumatic stress disorder Encounter for long-term (current) use of other medications 09/13/2023 9:35 AM EST Health Maintenance Due Date Last Done Comments Hepatitis B (1 of 3 - 3-dose series) 1981 COVID-19 Vaccine (#1) 1981 Pneumococcal Vaccine: Pediatrics (0 to 5 Years) and At-Risk Patients (6 to 64 Years) (1 - PCV) 1987 HPV/Co-Test 2011 Depression Screening 02/16/2020 02/15/2019 Cervical Cancer Screening 02/15/2022 Pap Smear 02/15/2022 02/15/2019, 08/01, 09/20/2005, Additional history exists Influenza Vaccine (FLU shot) (#1) 2023 DTaP,Tdap,and Td Vaccines (2 - Td or Tdap) 06/14/2023 06/14/2013 Mammogram 12/23/2023 12/22/2022, 11/29, 12/07/2022, Additional history exists Diabetes Screening 12/23/2025 12/23/2022, 0 12/23/2022, 12/23/2022, Additional history exists Lipid Panel 12/24/2027 12/23/2022, 07/31, 02/25/2021, Additional history exists GARDASIL-HPV IMMUNIZATION SERIES Aged Out No longer eligible based on patient's age to complete this topic MENINGOCOCCAL (MENACTRA/MENVEO) Aged Out No longer eligible based on patient's age to complete this topic documented as of this encounter Medical Devices Not on filedocumented as of this encounter Visit Diagnoses Diagnosis Bipolar II disorder (HCC) Other bipolar disorders Prolonged posttraumatic stress disorder Posttraumatic stress disorder Encounter for long-term (current) use of other medications documented in this encounter Advance Directives Latest Code Status on File Code Status Date Activated Date Inactivated Comments Full Code 10/18/2017 1:38 PM 10/18/2017 6:06 PM This order reflects the patients wishes and were consensually agreed upon. Care Teams Milk Powder Grinder Relationship Specialty Start Date End Date Candis Fink PA-C [address] [facility] [place] [address] PCP - General Physician Admin Assistant 11/29/22 documented as of this encounter
--- OUTSIDE RECORDS SUMMARY | 2024-02-25 11:38 | External Medical Summary ---
Author Name Unknown Address Unknown Organization K01:LABORATORY [facility] - [address] [facility] [address] Laboratory Report Ordering Provider Test Date Status VENKATESH JIM 09/13/2023 09:35:03 Final Observation Date Value Abnormality Reference (Units ) Status Triglyceride 09/13/2023 09:35:03 109 <=174 ( mg/dL) Final Triglyceride Reference Range s (mg/dL):
<150 Acceptable
150-174 Borderline high
175-499 High
>=500 Very high Cholesterol 09/13/2023 09:35:03 187 <200 (mg /dL) Final Total Cholesterol Reference Ranges (mg/dL):
<200 Desirable
200-239 Borderline high
>=240 High HDL 09/13/2023 09:35:03 42 Below low normal >49 (mg/dL) Final HDL Cholesterol Reference Ra nges (mg/dL):
>=60 High (Desirable)
<50 Low (Undesirable) For Females
<40 Low (Undesirable) For Males NON-HDL CHOLESTEROL 09/13/2023 09:35:03 145 <=159 (mg/dL) Final Non-HDL Cholesterol Referenc e Range (mg/dL):
<100 Target level for high risk ASCVD patient
<130 Optimal for general population
130-159 Near optimal for general population
160-189 Borderline High
190-219 High
>=220 Very High LDL, (calculated) 09/13/2023 09:35:03 123 <= 129 (mg/dL) Final LDL Cholesterol Reference Ra nges (mg/dL):
<70 Target level for high risk ASCVD patient
<100 Optimal for general population
100-129 Near optimal for general population
130-159 Borderline high
160-189 High
>=190 Very high Performing Location LABORATORY [facility] - [address] [facility] [address]
[2024-02-25] MEDS: ONDANSETRON INJ 2 MG/ML 2 ML VIAL IV STA (12:14)
[2024-02-25] MEDS: HYDROmorphone INJ 0.5 MG/0.5 ML SYR IV PRN (12:14)
[2024-02-25 12:29] LABS: Basophils # (auto) 0.06 K/uL (0.00-0.20); Basophils % (auto) 0.6 %; Eosinophils # (auto) 0.33 K/uL (0.00-0.50); Eosinophils % (auto) 3.5 %; Immature Granulocytes # (auto) 0.04 K/uL (0.01-0.20); Immature Granulocytes % (auto) 0.4 %; Lymphocytes # (auto) 2.97 K/uL (1.20-3.40); Lymphocytes % (auto) 31.2 %; Mean Corpuscular Hemoglobin 27.7 pg (25.0-34.0); Mean Corpuscular Hgb Conc 32.5 g/dL (32.0-36.0); Mean Corpuscular Volume 85.1 fL (80.0-100.0); Mean Platelet Volume 10.5 fL (9.4-12.4); Monocytes # (auto) 0.55 K/uL (0.11-0.59); Monocytes % (auto) 5.8 %; Neutrophils # (auto) 5.56 K/uL (1.40-6.50); Neutrophils % (auto) 58.5 %; Platelet Count 353 K/uL (130-400); RDW Standard Deviation 43.3 fL (36.4-46.3); White Blood Count 9.51 K/ul (4.8-10.8)
[2024-02-25 12:41] LABS: Pregnancy Test, Serum Negative (Negative)
[2024-02-25 12:47] LABS: Albumin Globulin Ratio 1.3 (0.9-2); Albumin Level 3.9 gm/dl (3.4-5.0); BUN Creatinine Ratio 7.6 (10-20); Bilirubin,Total 0.6 mg/dl (0.2-1.0); Calcium 8.9 mg/dl (8.6-10.3); Creatinine Clr Calc Pharmacy 75.7 ml/min; Est GFR (African American) 75.9 ml/min; Est GFR (Non-African American) 65.5 ml/min; Globulin 3.1 gm/dl (2.5-4.0); Potassium 3.7 mmol/L (3.5-5.1)
--- NOTE | 2024-02-25 13:02 | XRay Report ---
XR elbow LT min 3V routine HISTORY: 43 years-old Female fall acute left elbow pain status post fall COMPARISON: None TECHNIQUE: 3 views of the left elbow FINDINGS: Mild dorsal soft tissue swelling. There is no acute fracture, dislocation or large joint effusion. IMPRESSION: No acute fracture. ACT 112: Negative or not required by law. The above report was generated using voice recognition software. It may contain grammatical, syntax o r spelling errors. Electronically signed by: Deacon Salguero M.D. 02/25/2024 1:01 PM
--- NOTE | 2024-02-25 13:03 | XRay Report ---
XR knee LT 3V HISTORY: 43 years-old Female fall, knee pain acute left knee pain status post fall COMPARISON: None TECHNIQUE: 3 views of the left knee FINDINGS: Abnormal appearance of the left tibial plateau with suspected acute nondisplaced slightly depressed a rticular fracture. Moderate sized joint effusion. Joint spaces are preserved. Soft tissue swelling is most pronounced medially. IMPRESSION: Suspected acute lateral tibial plateau fracture with joint effusion. Correlation with CT recommended. ACT 112: Negative or not required by law. The above report was generated using voice recognition software. It may contain grammatical, syntax o r spelling errors. Electronically signed by: Deacon Salguero M.D. 02/25/2024 1:02 PM
--- NOTE | 2024-02-25 13:06 | XRay Report ---
XR wrist LT min 3V routine HISTORY: 43 years-old Female fall, possible open fx acute pain left wrist status post fall COMPARISON: None TECHNIQUE: 3 views of the left wrist FINDINGS: There is an acute comminuted intra-articular displaced and angulated distal radial fracture with apex volar angulation and dorsal displacement of the proximalr 2 cm. Moderate soft tissue swelling. No ad ditional acute fracture or dislocation identified. Mild osteoarthritis. IMPRESSION: Acute comminuted, angulated and displaced intra-articular distal radial fracture. ACT 112: Negative or not required by law. The above report was generated using voice recognition software. It may contain grammatical, syntax o r spelling errors. Electronically signed by: Deacon Salguero M.D. 02/25/2024 1:05 PM
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
[2024-02-25] MEDS ORDERED: ATROPINE SULFATE 0.1 MG/ML 10ML SYR IV PRN (13:52)
[2024-02-25] MEDS ORDERED: ePHEDrine sulfate 50 MG/ML AMP IV PRN (13:52)
[2024-02-25] MEDS ORDERED: ONDANSETRON INJ 2 MG/ML 2 ML VIAL IV PRN ×2 (13:52→20:21)
--- NOTE | 2024-02-25 13:52 | Anesthesiology Consultation ---
Date of Service February 25, 2024 Assessment & Plan Chart Review Chart Review: order entry administrator initiated History Surgery Operation Date: 02/25/24 15:30 Proposed Procedures p Open Reduction Internal Fixation Radius - Gene Alexander Keller MD Height/Weight Height: 5 ft Weight: 103.5 kg Allergies Allergy/AdvReac Type Severity Reaction Status Date / Time meloxicam Allergy Severe Swelling Verified 06/26/18 11:03 of Lip/Tongue/Throat Penicillins Allergy Severe SWELLING Verified 06/26/18 11:03 cephalexin Allergy Intermediate DIZZINESS Verified 06/26/18 11:03 sulfamethoxazole Allergy Intermediate Verified 06/26/18 11:03 trimethoprim Allergy Intermediate Verified 06/26/18 11:03 bee venom protein (honey bee) Allergy Mild SWELLING Verified 06/26/18 11:03 orange Allergy Mild HIVES Verified 06/26/18 11:03 Sulfa (Sulfonamide Allergy Unknown RASH Verified 06/26/18 11:03 Antibiotics) Medications Home Medications Medication Instructions Recorded Confirmed Last Taken DICLOFENAC SODIUM (VOLTAREN) 75 mg PO BID #0 tabs 03/16/15 Unknown OMEPRAZOLE (PRILOSEC) 20 mg PO DAILY #0 caps 05/19/15 Unknown CITALOPRAM HYDROBROMIDE (CELEXA) 40 mg PO QAM ##0 09/21/17 Unknown FLUOXETINE HCL (PROZAC) 40 mg PO DAILY ##0 09/21/17 Unknown Folic Acid 1 mg PO DAILY ##0 09/21/17 Unknown MELATONIN 20 mg PO HS ##0 09/21/17 Unknown TRAZODONE HCL (Desyrel) 50 mg PO HS ##0 09/21/17 Unknown CYCLOBENZAPRINE HCL (FLEXERIL) 5 mg PO TID PRN Muscle Spasms #0 11/09/17 Unknown tabs VENLAFAXINE HCL (Effexor) 150 mg PO DAILY #0 tabs 11/09/17 Unknown LAMOTRIGINE (LAMICTAL) 150 mg PO DAILY #0 tabs 11/12/17 Unknown benztropine 1 mg tablet 1 mg PO DAILY 06/25/18 06/25/18 Unknown fluoxetine 40 mg capsule 40 mg PO QAM 06/25/18 06/25/18 Unknown folic acid 20 mg capsule 10 mg PO DAILY 06/25/18 06/25/18 Unknown lamotrigine 100 mg tablet 300 mg PO DAILY 06/25/18 06/25/18 Unknown lithium carbonate 300 mg capsule 300 mg PO BID 06/25/18 06/25/18 Unknown melatonin 10 mg tablet 10 mg PO HS 06/25/18 06/25/18 Unknown naproxen 500 mg tablet 500 mg PO BID 06/25/18 06/25/18 Unknown omeprazole 20 mg tablet,delayed 20 mg PO DAILY 06/25/18 06/25/18 Unknown release pramipexole 0.25 mg tablet 0.25 mg PO BID 06/25/18 06/25/18 Unknown (Mirapex) prazosin 2 mg capsule 2 mg PO HS 06/25/18 06/25/18 Unknown trazodone 100 mg tablet 300 mg PO HS 06/25/18 06/25/18 Unknown venlafaxine 150 mg 150 mg PO BID 06/25/18 06/25/18 Unknown capsule,extended release 24 hr ciprofloxacin HCl 500 mg tablet 500 mg PO BID #20 tabs 06/30/22 Unknown (Cipro) ondansetron HCl 4 mg tablet 4 mg PO Q6H PRN nausea and 06/30/22 Unknown vomiting #10 tabs Active Medications Generic Name Dose Route Start Last Admin Trade Name Freq PRN Reason Stop Dose Admin Hydromorphone HCl 0.5 mg 02/25/24 12:04 02/25/24 12:14 Hydromorphone Inj 0.5 Mg/0.5 Ml Syr IV 03/10/24 12:03 0.5 mg Q15M PRN Administration Pain Past Medical History Medical History Degenerative disorder of bone Bulging disc PTSD (post-traumatic stress disorder) Past Surgical History Surgical History History of cholecystectomy S/P carpal tunnel release Social History Smoking Status: Former smoker Physical Exam Vital Signs Last Vital Signs Temp 97.3 F L 02/25/24 11:43 Pulse 79 02/25/24 12:18 Resp 18 02/25/24 12:18 BP 135/93 02/25/24 11:43 Pulse Ox 90 02/25/24 12:18 O2 Del Method Room Air 02/25/24 12:18 Testing Laboratory Results 02/25/24 12:13 02/25/24 12:13
[2024-02-25] MEDS: DIPHTHER/TETAN/PERTUS Vaccine (Tdap, Adol/Adult) 0.5mL IM ONE (13:56)
--- NOTE | 2024-02-25 13:57 | CT Scan Report ---
CT knee LT wo con HISTORY: 43 years-old Female suspected tibial plateau fx on xray acute left knee pain COMPARISON: Radiographs of same day TECHNIQUE: Multiple axial CT images of the left knee were obtained without IV contrast. A dose loweri ng technique was used consistent with the principals of CORARA. FINDINGS: There is confirmation of the acute intra-articular lateral tibial plateau fracture which is comminute d with articular depression measuring up to approximately 5 mm. Longitudinal components of the fractu re extend into the lateral tibial metaphysis. No additional acute fracture or dislocation. No large d isplaced intra-articular fracture fragments are seen. Moderate sized lipohemarthrosis. No dislocation . Tendons and ligaments are not well evaluated by CT technique. IMPRESSION: 1. Confirmation of the acute comminuted lateral tibial plateau fracture with articular depression. 2. Moderate sized lipohemarthrosis. ACT 112: Negative or not required by law. The above report was generated using voice recognition software. It may contain grammatical, syntax o r spelling errors. Electronically signed by: Deacon Salguero M.D. 02/25/2024 1:56 PM
[2024-02-25] MEDS: CLINDAMYCIN/D5W 900 MG/50 ML BAG IV ONE (14:02)
--- NOTE | 2024-02-25 14:03 | CT Scan Report ---
CT wrist LT wo con HISTORY: 43 years-old Female fx. preop acute pain in left wrist status post fall COMPARISON: Wrist radiographs of same day TECHNIQUE: Multiple axial CT images of the left wrist were obtained without IV contrast. A dose lower ing technique was used consistent with the principals of LIZ. FINDINGS: Study is motion degraded. There is an acute comminuted intra-articular displaced and angulated distal radial fracture with apex volar angulation and dorsal displacement of approximately 2 cm. Moderate s oft tissue swelling. A subcentimeter fracture fragment is noted adjacent to the distal ulna. There is an equivocal acute nondisplaced distal ulnar fracture. Scaphoid appears intact. Mild osteoarthritis. IMPRESSION: 1. Acute comminuted, angulated and displaced intra-articular distal radial fracture. 2. Equivocal acute nondisplaced distal ulnar fracture. ACT 112: Negative or not required by law. The above report was generated using voice recognition software. It may contain grammatical, syntax o r spelling errors. Electronically signed by: Deacon Salguero M.D. 02/25/2024 2:01 PM
--- NOTE | 2024-02-25 14:29 | Orthopedic Consultation ---
Date of Consultation February 25, 2024 Assessment & Plan (1) Open fracture of bone of left wrist: Patient was educated regarding today's findings. Importance of irrigation and debridement with ORIF was discussed at length. She is agreeable to proceed. Written informed consent was obtained. She last ate last evening. She last drank approximately 1-1/2 hours ago and had 4 ounces of coffee with creamer. Because of the open nature of the fracture, this will be done on an emergent basis to minimize the risk for infection. Consent was obtained by Dr. Keller. The tibial plateau fracture does not require any emergent treatment. She was placed in a knee immobilizer and will be treated nonoperatively unless the fragments depress further. She will be nonweightbearing on the left leg. She may require a platform walker. The patient was placed in an Ortho-Glass splint for her wrist to stabilize during transport to the OR. Tetanus was updated in the ED. Preoperative antibiotics were given in the ED as well. Given her allergy profile, clindamycin was chosen. Supervising Physician Co-Signing Physician Notes I, Dr. Keller, saw and examined the patient. I discussed the management with my PA. I reviewed my PAs note and agree with the documented findings and attest to completing the substantive portion of medical decision making and plan of care I developed. History of Present Illness Reason for Consultation: Left wrist open distal radius fracture. Left lateral tibial plateau fracture Requesting Physician: Jeni Keller MD Attending Physician: Edilberto Brown MD History of Present Illness This 43-year-old female with a history of psoriasis, chronic low back pain, obesity, GERD, depression, and anxiety, is seen today in the ED for evaluation of her left wrist and left knee. The patient was at a friend's house with her significant other, picking up a trailer. The friend's large dog ran into her and knocked her down in the yard. She landed on her left side. She had immediate onset of pain in her left wrist and left knee. There was an obvious deformity to her left wrist. She was brought to the ED for evaluation. Films here reveal an open comminuted distal radius fracture. There is an intra- articular extension. Films also confirm a lateral tibial plateau fracture with slight depression. She has a distant history of fracture of the left wrist at approximately age 13. She has had no residual problems since then. [id number]. She denies any numbness or tingling. She is having difficulty ambulating secondary to knee pain. Allergies Allergy/AdvReac Type Severity Reaction Status Date / Time meloxicam Allergy Severe Swelling Verified 02/25/24 14:39 of Lip/Tongue/Throat Penicillins Allergy Severe SWELLING Verified 02/25/24 14:39 cephalexin Allergy Intermediate DIZZINESS Verified 02/25/24 14:39 sulfamethoxazole Allergy Intermediate Verified 02/25/24 14:39 trimethoprim Allergy Intermediate Verified 02/25/24 14:39 bee venom protein (honey bee) Allergy Mild SWELLING Verified 02/25/24 14:39 orange Allergy Mild HIVES Verified 02/25/24 14:39 Sulfa (Sulfonamide Allergy Unknown RASH Verified 02/25/24 14:39 Antibiotics) Home Medications Medication Instructions Recorded Confirmed Type aripiprazole 300 mg intramuscular 300 mg IM MONTHLY 02/25/24 02/25/24 History suspension,extended release (Abilifarlyn Maintena) omeprazole 20 mg capsule,delayed 20 mg PO DAILY PRN Heartburn 02/25/24 02/25/24 History release Patient History Medical History (Updated 02/25/24 @ 14:32 by Luigi Newell PA-C) GERD (gastroesophageal reflux disease) Psoriasis Degenerative disorder of bone Bulging disc PTSD (post-traumatic stress disorder) Surgical History (Updated 02/25/24 @ 14:32 by Luigi Newell PA-C) History of cholecystectomy S/P carpal tunnel release Family History (Updated 02/25/24 @ 14:32 by Luigi Newell PA-C) Other No pertinent family history Social History (Updated 02/25/24 @ 14:33 by Luigi Newell PA-C) Smoking Status: Former smoker Tobacco Type: Cigarettes Preferred Language: [place] Hearing Ability: Normal marital status: Life Partner Current Living Situation: Significant Other Feels Safe at Home: Yes Review of Systems Review of Systems: All systems reviewed & are unremarkable except as noted in HPI & below Physical Exam Physical Exam: General: Well-developed, well-nourished, obese middle-aged female, in no acute distress. Obvious discomfort. Laying on the bed. Alert and oriented. Skin: Warm and dry with good turgor. No rashes. The patient has a puncture maynor present on the volar surface of her left wrist with active bleeding. No bone is visible. It is in the area of her known fracture. No intra-articular effusion in the left knee. No ecchymosis. Extensive tattoos. Heart: Heart RRR. No MGR. Peripheral pulses are 2+. Lungs: The patient has expiratory rhonchi present in all sawyer. No crackles or rubs. Fair air movement. Abdomen: Obese. Bowel sounds present x 4. Soft nontender. No organomegaly. No masses. Musculoskeletal: Left knee evaluation reveals no intra-articular effusion. She has full terminal extension. Flexion to only around 45/50 degrees secondary to pain. Stable collateral ligaments with MCL and LCL stressing. No palpable defect in the patellar tendon or quadriceps tendon. She is able to perform a straight leg raise with pain. Intact motor function of the ankle. Left upper extremity evaluation reveals no pain with palpation over the clavicle, glenohumeral joint, humerus, or elbow. She has exquisite discomfort with palpation over the distal radius and distal ulna. Visible deformity is present. No pain with palpation over the metacarpals or digits. Motor function of the fingers is intact but is limited secondary to wrist pain. Thumb circumduction and opposition are intact. Neurologic: Gross sensation is intact across the upper and lower extremities by soft touch. Radial, median, and ulnar nerve functions are intact for both motor and sensory on the left arm. Results & Data Vital Signs (Past 12 Hours) Vital Signs Temp Pulse Pulse Resp BP BP Pulse Ox 02/25/24 14:00 80 18 136/82 97 02/25/24 12:18 79 18 90 02/25/24 11:43 36.3 C L 83 16 135/93 100 O2 Del Method 02/25/24 14:00 Room Air 02/25/24 12:18 Room Air 02/25/24 11:43 Room Air Laboratory Results 02/25/24 Range/Units 12:13 WBC 9.51 (4.8-10.8) K/ul RBC 4.70 (4.20-5.40) M/uL Hgb 13.0 (12.0-16.0) g/dl Hct 40.0 (37.0-47.0) % MCV 85.1 (80.0-100.0) fL MCH 27.7 (25.0-34.0) pg MCHC 32.5 (32.0-36.0) g/dL RDW Std Deviation 43.3 (36.4-46.3) fL RDW Coeff of Edna 14.0 (11.5-14.5) % Plt Count 353 (130-400) K/uL MPV 10.5 (9.4-12.4) fL Immature Gran % (Auto) 0.4 % Neut % (Auto) 58.5 % Lymph % (Auto) 31.2 % [place] % (Auto) 5.8 % Eos % (Auto) 3.5 % Baso % (Auto) 0.6 % Neut # (Auto) 5.56 (1.40-6.50) K/uL Lymph # (Auto) 2.97 (1.20-3.40) K/uL [place] # (Auto) 0.55 (0.11-0.59) K/uL Eos # (Auto) 0.33 (0.00-0.50) K/uL Baso # (Auto) 0.06 (0.00-0.20) K/uL Immature Gran # (Auto) 0.04 (0.01-0.20) K/uL Sodium 139 (136-145) mmol/L Potassium 3.7 (3.5-5.1) mmol/L Chloride 106 (98-107) mmol/L Carbon Dioxide 26 (21-32) mmol/L Anion Gap 7 (3-11) BUN 8 (6-23) mg/dl Creatinine 1.05 (0.6-1.2) mg/dl Est Cr Clr Drug Dosing 75.7 ml/min Est GFR ( Amer) 75.9 ml/min Est GFR (Non-Af Amer) 65.5 ml/min BUN/Creatinine Ratio 7.6 L (10-20) Glucose 128 H (70-99(Fasting)) mg/dl Calcium 8.9 (8.6-10.3) mg/dl Total Bilirubin 0.6 (0.2-1.0) mg/dl AST 15 (13-39) U/L ALT 14 (7-52) U/L Alkaline Phosphatase 49 (34-104) U/L Total Protein 7.0 (6.0-8.3) gm/dl Albumin 3.9 (3.4-5.0) gm/dl Globulin 3.1 (2.5-4.0) gm/dl Albumin/Globulin Ratio 1.3 (0.9-2) HCG, Qual Negative (Negative) Diagnostic Findings Radiographic imaging obtained today of the left wrist shows comminuted intra- articular distal radius fracture at the site of her open wound. Radiographic imaging of the left knee along with CT scan imaging of the left knee also confirms a lateral tibial plateau fracture with approximately 2 mm of depression. Size of the lesion is approximately 12 mm x 4.5 mm.
[2024-02-25] MEDS ORDERED: MIDAZOLAM HCL 1 MG/ML 2ML VIAL ONE (14:32)
[2024-02-25] MEDS ORDERED: LIDOCAINE 2% 2 ML VIAL/AMP(20MG/ML) INFIL ONE (14:32)
[2024-02-25] MEDS ORDERED: PROPOFOL IV EMULSION 10 MG/ML 20 ML VIAL IV ONE (14:32)
[2024-02-25] MEDS ORDERED: fentaNYL citrate PF 100 MCG/2 ML VIAL ONE (14:33)
[2024-02-25] MEDS: fentaNYL citrate PF 100 MCG/2 ML VIAL IV PRN (14:35)
[2024-02-25] MEDS ORDERED: ONDANSETRON INJ 2 MG/ML 2 ML VIAL ONE (16:21)
[2024-02-25] MEDS ORDERED: ROCURONIUM BROMIDE 10 MG/ML 5 ML VIAL IV ONE (16:22)
[2024-02-25] MEDS ORDERED: SUCCINYLCHOLINE CHLORIDE 20 MG/ML 10 ML VIAL IV ONE (16:22)
[2024-02-25] MEDS ORDERED: HYDROmorphone INJ 2 MG/ML SYR/VIAL ONE (16:51)
[2024-02-25] MEDS: LIDOCAINE 1%/EPINEPHRINE 1:100,000 50 ML VIAL ONE (18:09)
[2024-02-25] MEDS: BUPIVACAINE 0.5 % 5 MG/1 ML MPF 30ML VIAL ONE (18:09)
--- NOTE | 2024-02-25 18:42 | Post Operative Brief Note ---
Immediate Post Op Note Date of Surgery February 25, 2024 Pre & Post Diagnosis Operation Date: 02/25/24 15:30 Pre-Op Diagnosis: Left wrist open distal radius fracture. Left lateral tibial plateau fracture Post-Op Diagnosis: Left wrist open distal radius fracture. Left lateral tibial plateau fracture I identified the patient and participated in the time-out.: Yes Procedure Operation Date: 02/25/24 15:30 Actual Procedures p Irrigation and Debridement Left Wrist with Open Reduction Internal Fixation of Left Wrist Open Distal Radius Fracture(Left) - Gene Keller MD Surgeon Gene Keller MD White Lead Grinder C [id number] monge (No fellow avail) Estimated Blood Loss 20 Findings Consistent with Post-Op Diagnosis Fluids 1200 cc Anesthesia Type General Complications none
--- NOTE | 2024-02-25 18:44 | Operative Report ---
Post Operative Report Pre & Post Diagnosis Operation Date: 02/25/24 15:30 Pre-Op Diagnosis: Left wrist open, comminuted intra-articular, distal radius fracture. Left lateral tibial plateau fracture Post-Op Diagnosis: Left wrist open distal, comminuted intra-articular, radius fracture. Left lateral tibial plateau fracture I identified the patient and participated in the time-out.: Yes Procedure Operation Date: 02/25/24 15:30 Actual Procedures p Irrigation and Debridement Left Wrist with Open Reduction Internal Fixation of Left Wrist Open Distal Radius Fracture(Left) - Gene Keller MD Surgeon Gene Keller MD Food Counselor Chava Newell PA-C (No fellow avail) Estimated Blood Loss 20 Findings See Below Grade I open, comminuted, Left, 2-part intra-articular ,distal radius fracture Left knee: ROM 0-125 deg. Ligamentous exam: stable Augustin, Posterior drawer, Varus and valgus stress at 0 & 30 deg. Fluids 1200 cc Specimens n/a Anesthesia Type General Complications none Indications Patient is a 43 year old female with x-ray and clinical exam findings consistent with an open, unstable, and displaced left distal radius fracture. After a lengthy discussion with the patient regarding their treatment options, I recommended that they undergo an I&D and ORIF of her left distal radius fracture. The risk of surgery were discussed and include but not limited to: bleeding, nerve damage, infection, failure of the hardware, mal-union, non- union, continued pain, progression of arthritis, decreased activity level, and DVT. They understood all the risks and benefits and wished to proceed with surgery. The informed consent was signed. Description of Procedure IMPLANTS: 1) 2.4 mm VA Locking 2 column Volar Plate, 6 hole Head/4 hole shaft (Synthes) 2) 2.4 mm VA Locking Screws (10 mm x 3, 16 mm x 2, 18 mm x 3) Chava Newell PA-C is assisting with positioning, retracting, the entire procedure, closure, and splinting due to fellow/resident not available. PROCEDURE: The patient was taken to the Operating Room and placed in the supine position on the operating table. After general anesthetic was administered a multidisciplinary time-out was performed identifying the patient and my initials on the left upper limb as the correct and operative limb. The patient had been given 900 milligrams of intravenous Clindamycin was given in the ED. The splint was removed. The left upper extremity was prepped and draped in the standard sterile fashion. The open wound and the planned extension as well as the planned incision was marked volarly ulnar to the radial artery. The wound and planned incisions were injected with a 50:50 mixture of 1% Lidocaine plain and 0.5% Marcaine with epi for a total of 10cc. The limb was then exsanguinated by gravity for 3 minutes before inflating the tourniquet to 250mmHg. The 1cm wound was extended distally and proximally ~ 1 cm. The wound was copiously irrigated with 1L Normal Saline. The planned incision was made and carried to the FCR. The sheath was incised and the FCR displaced radially to allow for the floor to be incised. Blunt dissection allowed exposure of the Pronator Quadratus, which was torn due to the trauma of the injury. The fracture fragments were debrided to allow for the best reduction with combination of freer, dental pick, [place], irrigation and suction.Several of some of the small fragments were removed. The brachioradialis was released off the radial styloid fragment. A pointed reduction clap was used to reduce was used to reduce the intra-articular portion and a K-wire was placed from radial proximal to the distal Ulnar. A reduction maneuver was performed.A cortical screw was placed in the oblong hole proximally. Fluoroscopy was used to confirm the reduced fracture and the plates proper placement. The cortical screw was loosened and K-wires were used to hold the plate in place distally. A cortical screw was placed in the 1st row radially to reduce the plate to the distal fragments. Locking screwed were placed in the distal holes excluding one distal hole overlying the intra-articular fracture. The proximal portion of the plate was reduced to the main proximal fragment and the cortical screw was tightened, recreating the volar tilt. The 3 remaining locking holes proximally were placed. The cortical screws were removed and the distal one was replaced with a locking screw in the standard fashion. The wounds were copiously irrigated. The void was filled with dbx putty and bone chips from the removed comminuted frgments. Final x-rays were taken showing near anatomic reduction. The Pronator Quadratus was closed over the plate distally with 3-0 Vicryl. The tourniquet was deflated. Hemostasis was well maintained. The skin was closed with 3-0 Nylon using vertical and horizontal mattress stitch. The limb was cleaned and dried. The incision was covered with Xeroform, 4x4's, ADB, sterile cast padding a resting volar splint and MIGUEL bandage. The sponge and needle counts were correct. POST-OP INSTRUCTIONS. The patient will be admitted to Med/Surg for 48 hours IV antibiotics. Pain medication will be given. DVT prophylaxis with SCD's and start Lovenox tomorrow. PT/OT, will need Platform walker. No heavy lifting LUE, may place weight through the forearm, NWB LLE. D/C planning. I attest to the content of the Intraoperative Record and any orders documented therein. Any exceptions are noted below.
--- NOTE | 2024-02-25 18:47 | Fluoroscopy Report ---
FL wrist LT 2V CLINICAL HISTORY: LEFT WRIST ORIF COMPARISON STUDY: CT of same day FLUOROSCOPY TIME: 16.8 seconds FLUOROSCOPY IMAGES: 2 EXPOSURE DOSE: 0.38 mGy FINDINGS: Status post placement of plate and screw fusion fixating the acute comminuted intra-articul ar distal radial fracture with near-anatomic alignment. Expected postoperative soft tissue swelling w ith deep tissue air. IMPRESSION: Fluoroscopic assistance as above. ACT 112: Negative or not required by law. Electronically signed by: Deacon Salguero M.D. 02/25/2024 6:46 PM
[2024-02-25] MEDS: fentaNYL citrate PF 100 MCG/2 ML VIAL ONE ×2 (19:00→19:27)
--- NOTE | 2024-02-25 19:56 | Anesthesiology Progress Note ---
Date of Service February 25, 2024 Anesthesia Post Procedure Vital Signs Vital Signs: Temp Pulse Pulse Pulse Resp BP BP 02/25/24 19:45 79 13 134/77 02/25/24 19:35 77 13 137/80 02/25/24 19:25 88 17 121/87 02/25/24 19:15 89 17 129/79 02/25/24 19:05 93 H 18 151/92 H 02/25/24 18:55 36.4 C L 96 H 18 141/99 H 02/25/24 15:19 81 20 126/89 02/25/24 14:37 75 14 02/25/24 14:00 80 18 136/82 02/25/24 12:18 79 18 02/25/24 11:43 36.3 C L 83 16 135/93 Pulse Ox O2 Del Method O2 Flow Rate 02/25/24 19:45 100 Nasal Cannula 2 02/25/24 19:35 99 Nasal Cannula 4 02/25/24 19:25 97 Nasal Cannula 4 02/25/24 19:15 96 Oxymask 4 02/25/24 19:05 94 Oxymask 4 02/25/24 18:55 96 Oxymask 6 02/25/24 15:19 97 Room Air 02/25/24 14:37 93 Room Air 02/25/24 14:00 97 Room Air 02/25/24 12:18 90 Room Air 02/25/24 11:43 100 Room Air Pain Intensity Left Wrist: Pain Intensity: 6 Transfer of Care Handoff Completed per policy Notes Mental Status: alert / awake / arousable and participated in evaluation Patient Amnestic to Procedure: Yes Nausea / Vomiting: adequately controlled Pain: adequately controlled Airway Patency, RR, SpO2: stable & adequate BP & HR: stable & adequate Hydration State: stable & adequate Anesthetic Complications: no major complications apparent and Pt Satisfied with anesthetic care
--- NOTE | 2024-02-25 20:15 | Operative Report ---
Post Operative Report Pre & Post Diagnosis Operation Date: 02/25/24 15:30 Pre-Op Diagnosis: Left wrist open distal radius fracture. Left lateral tibial plateau fracture Post-Op Diagnosis: Left wrist open distal radius fracture. Left lateral tibial plateau fracture I identified the patient and participated in the time-out.: Yes Procedure Operation Date: 02/25/24 15:30 Actual Procedures p Irrigation and Debridement Left Wrist with Open Reduction Internal Fixation of Left Wrist Open Distal Radius Fracture(Left) - Gene Keller MD Surgeon Jeni Keller MD Furniture Finisher Helper Chava Newell PA-C (No fellow avail) Estimated Blood Loss 20 Findings Consistent with Post-Op Diagnosis See operative report Specimens None Drains None Complications none Disposition Accompanied Patient To Recovery: Yes Indications This 43-year-old female presented to the ED after a ground-level fall when she was knocked over by a friend's dog. She had immediate onset of pain. The patient was evaluated in the ED and found to have a comminuted intra-articular open distal radius fracture. Treatment options were discussed. She elected to proceed with surgical intervention in hopes of improving her pain and function. Preoperative imaging was obtained. Description of Procedure The patient was taken the operating room where she was given general anesthesia. She was prepped and draped in the usual sterile fashion. Please see Dr. Keller's operative report for specifics of the procedure. I was present for the entire case from initial patient positioning through final wound closure. Assistance was provided in tissue retraction, hemostasis, fracture reduction, hardware placement, final wound closure, and postsurgical splinting. She was taken to the ICU recovery room in satisfactory condition. I attest to the content of the Intraoperative Record and any orders documented therein. Any exceptions are noted below.
[2024-02-25] MEDS ORDERED: NALOXONE HCL 0.4 MG/1 ML VIAL/CARP IV PRN (20:21)
[2024-02-25] MEDS ORDERED: MAGNESIUM HYDROXIDE SUSP 30 ML UDC PO PRN (20:21)
[2024-02-25] MEDS ORDERED: METOCLOPRAMIDE HCL INJ 5 MG/ML 2 ML VIAL IV PRN (20:21)
[2024-02-25] MEDS ORDERED: bisacodyL 10 MG SUPP PR PRN (20:21)
[2024-02-25] MEDS ORDERED: diphenhydrAMINE 50 MG/ML VIAL IV PRN (20:21)
[2024-02-25] MEDS ORDERED: HYDROmorphone INJ 0.5 MG/0.5 ML SYR IV PRN (20:21)
[2024-02-25] MEDS ORDERED: ALUMINUM/MAGNESIUM SUSP 30 ML UDC PO PRN (20:21)
[2024-02-25] MEDS ORDERED: PANTOprazole 40 MG TAB PO PRN (20:23)
--- NOTE | 2024-02-25 21:32 | Hospitalist Consultation ---
Date of Consultation February 25, 2024 Assessment & Plan (1) Open fracture of bone of left wrist: Final Assessment and Recommendations as follows : Traumatic left radial fracture status post surgery Traumatic left tibia fracture mood disorder, stable ongoing tobacco abuse Analgesia Nicotine patch as needed DVT prophylaxis. Lovenox subcu as per postop orders Thank you very much for this consultation. Dr. Rodriguez will follow patient's progress. Text document was generated using Kili voice recognition software. It may contain grammatical or spelling errors. Kindly contact undersigned for clarification of any documentation item in question. History of Present Illness Reason for Consultation: medical management Requesting Physician: Dr. Keller/Luigi Newell PA-C Attending Physician: Gene Keller MD History of Present Illness PCP : Candis Fink PA-C History obtained from patient and records. Medical history significant for GERD, mood disorder, RLS, ongoing tobacco abuse. Patient got knocked down on her yard by friend's large dog resulting in patient landing on her left side. Painful deformity and open wound on left wrist. No head trauma, LOC, chest pain, SOB. Patient brought to [facility] for evaluation. Patient subsequently admitted by Orthopedics service for traumatic distal left radius and left lateral tibial plateau fracture. Patient underwent urgent debridement of left distal radius fracture. Patient currently comfortable postop. Denies chest pain, SOB. Medical History as above Surgical History : Carpal tunnel surgery, dental surgery, wrist surgery, foot/toe surgery, BTL, cholecystectomy Family History : Heart disease, breast cancer, [place]'s disease, eczema, bronchial asthma Personal/Social history : Half pack daily, no EtOH intake, factory employee Allergies Allergy/AdvReac Type Severity Reaction Status Date / Time meloxicam Allergy Severe Swelling Verified 02/25/24 14:39 of Lip/Tongue/Throat Penicillins Allergy Severe SWELLING Verified 02/25/24 14:39 cephalexin Allergy Intermediate DIZZINESS Verified 02/25/24 14:39 sulfamethoxazole Allergy Intermediate Verified 02/25/24 14:39 trimethoprim Allergy Intermediate Verified 02/25/24 14:39 bee venom protein (honey bee) Allergy Mild SWELLING Verified 02/25/24 14:39 orange Allergy Mild HIVES Verified 02/25/24 14:39 Sulfa (Sulfonamide Allergy Unknown RASH Verified 02/25/24 14:39 Antibiotics) Home Medications Medication Instructions Recorded Confirmed Type aripiprazole 300 mg intramuscular 300 mg IM MONTHLY 02/25/24 02/25/24 History suspension,extended release (Woody Castro) omeprazole 20 mg capsule,delayed 20 mg PO DAILY PRN Heartburn 02/25/24 02/25/24 History release Patient History Medical History (Updated 02/25/24 @ 14:32 by Luigi Newell PA-C) GERD (gastroesophageal reflux disease) Psoriasis Degenerative disorder of bone Bulging disc PTSD (post-traumatic stress disorder) Surgical History (Updated 02/25/24 @ 14:32 by Luigi Newell PA-C) History of cholecystectomy S/P carpal tunnel release Family History (Updated 02/25/24 @ 14:32 by Luigi Newell PA-C) Other No pertinent family history Social History (Updated 02/25/24 @ 14:33 by Luigi Newell PA-C) Smoking Status: Current every day smoker Tobacco Type: Cigarettes Cigarettes Per Day: 1 pack; Second Hand Exposure: Yes (as child); Do You Dip or Chew Tobacco: No; Hx Alcohol Use: Yes Alcohol type: hard liquor Hx Substance Use: Yes Last Used Substance: Days (ago) Last Used Substance Other:: "last night" Substance Use Type Other:: medical marijuana pt Preferred Language: Occitan Communication Ability: Effective Hearing Ability: Normal 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 Beliefs That Will Affect Care: None marital status: Life Partner Current Living Situation: Significant Other Other Information That Helps Us Care for You: No Feels Safe at Home: Yes Safety Concerns: Feels Safe At This Time Assistive Devices: None Review of Systems Review of Systems: As per HPI, all other systems reviewed and negative Physical Exam Physical Exam: GENERAL: Comfortable, morbidly obese, pleasant, no respiratory distress SKIN: Normal color, warm HEENT: [place] palpebral conjunctivae, no ptosis, dry buccal mucosa NECK : Supple, short neck, no tenderness CHEST : Decreased breath sounds, occasional expiratory wheezes, no tenderness HEART : RRR, no obvious murmurs ABDOMEN: Some distention, nontender EXTREMITIES : Bilateral LE swelling without tenderness, LUE splint/dressing in place NEUROLOGIC : Coherent, no facial asymmetry, no other gross focality Results & Data Results & Data Vital Signs (Past 12 Hours) Vital Signs Temp Pulse Pulse Pulse Pulse Resp BP 02/25/24 20:51 37.1 C 82 18 02/25/24 20:40 36.9 C 83 18 02/25/24 19:55 36.9 C 80 20 02/25/24 19:45 79 13 02/25/24 19:35 77 13 02/25/24 19:25 88 17 02/25/24 19:15 89 17 02/25/24 19:05 93 H 18 02/25/24 18:55 36.4 C L 96 H 18 02/25/24 15:19 81 20 02/25/24 14:37 75 14 02/25/24 14:00 80 18 02/25/24 12:18 79 18 02/25/24 11:43 36.3 C L 83 16 135/93 BP Pulse Ox O2 Del Method O2 Flow Rate 02/25/24 20:51 135/80 100 Nasal Cannula 2 02/25/24 20:40 136/83 99 Nasal Cannula 2 02/25/24 19:55 125/73 94 Nasal Cannula 2 02/25/24 19:45 134/77 100 Nasal Cannula 2 02/25/24 19:35 137/80 99 Nasal Cannula 4 02/25/24 19:25 121/87 97 Nasal Cannula 4 02/25/24 19:15 129/79 96 Oxymask 4 02/25/24 19:05 151/92 H 94 Oxymask 4 02/25/24 18:55 141/99 H 96 Oxymask 6 02/25/24 15:19 126/89 97 Room Air 02/25/24 14:37 93 Room Air 02/25/24 14:00 136/82 97 Room Air 02/25/24 12:18 90 Room Air 02/25/24 11:43 100 Room Air Laboratory Results Laboratory Results WBC 9.51 K/ul (4.8-10.8) 02/25/24 12:13 RBC 4.70 M/uL (4.20-5.40) 02/25/24 12:13 Hgb 13.0 g/dl (12.0-16.0) 02/25/24 12:13 Hct 40.0 % (37.0-47.0) 02/25/24 12:13 MCV 85.1 fL (80.0-100.0) 02/25/24 12:13 MCH 27.7 pg (25.0-34.0) 02/25/24 12:13 MCHC 32.5 g/dL (32.0-36.0) 02/25/24 12:13 RDW Std Deviation 43.3 fL (36.4-46.3) 02/25/24 12:13 RDW Coeff of Edna 14.0 % (11.5-14.5) 02/25/24 12:13 Plt Count 353 K/uL (130-400) 02/25/24 12:13 MPV 10.5 fL (9.4-12.4) 02/25/24 12:13 Immature Gran % (Auto) 0.4 % 02/25/24 12:13 Neut % (Auto) 58.5 % 02/25/24 12:13 Lymph % (Auto) 31.2 % 02/25/24 12:13 [place] % (Auto) 5.8 % 02/25/24 12:13 Eos % (Auto) 3.5 % 02/25/24 12:13 Baso % (Auto) 0.6 % 02/25/24 12:13 Neut # (Auto) 5.56 K/uL (1.40-6.50) 02/25/24 12:13 Lymph # (Auto) 2.97 K/uL (1.20-3.40) 02/25/24 12:13 [place] # (Auto) 0.55 K/uL (0.11-0.59) 02/25/24 12:13 Eos # (Auto) 0.33 K/uL (0.00-0.50) 02/25/24 12:13 Baso # (Auto) 0.06 K/uL (0.00-0.20) 02/25/24 12:13 Immature Gran # (Auto) 0.04 K/uL (0.01-0.20) 02/25/24 12:13 Sodium 139 mmol/L (136-145) 02/25/24 12:13 Potassium 3.7 mmol/L (3.5-5.1) 02/25/24 12:13 Chloride 106 mmol/L (98-107) 02/25/24 12:13 Carbon Dioxide 26 mmol/L (21-32) 02/25/24 12:13 Anion Gap 7 (3-11) 02/25/24 12:13 BUN 8 mg/dl (6-23) 02/25/24 12:13 Creatinine 1.05 mg/dl (0.6-1.2) 02/25/24 12:13 Est Cr Clr Drug Dosing 75.7 ml/min 02/25/24 12:13 Est GFR ( Amer) 75.9 ml/min 02/25/24 12:13 Est GFR (Non-Af Amer) 65.5 ml/min 02/25/24 12:13 BUN/Creatinine Ratio 7.6 (10-20) L 02/25/24 12:13 Glucose 128 mg/dl (70-99(Fasting)) H 02/25/24 12:13 Calcium 8.9 mg/dl (8.6-10.3) 02/25/24 12:13 Total Bilirubin 0.6 mg/dl (0.2-1.0) 02/25/24 12:13 AST 15 U/L (13-39) 02/25/24 12:13 ALT 14 U/L (7-52) 02/25/24 12:13 Alkaline Phosphatase 49 U/L (34-104) 02/25/24 12:13 Total Protein 7.0 gm/dl (6.0-8.3) 02/25/24 12:13 Albumin 3.9 gm/dl (3.4-5.0) 02/25/24 12:13 Globulin 3.1 gm/dl (2.5-4.0) 02/25/24 12:13 Albumin/Globulin Ratio 1.3 (0.9-2) 02/25/24 12:13 HCG, Qual Negative (Negative) 02/25/24 12:13 Impressions Elbow X-Ray 02/25/24 12:08 XR elbow LT min 3V routine HISTORY: 43 years-old Female fall acute left elbow pain status post fall COMPARISON: None TECHNIQUE: 3 views of the left elbow FINDINGS: Mild dorsal soft tissue swelling. There is no acute fracture, dislocation or large joint effusion. IMPRESSION: No acute fracture. ACT 112: Negative or not required by law. The above report was generated using voice recognition software. It may contain grammatical, syntax or spelling errors. Electronically signed by: Deacon Salguero M.D. 02/25/2024 1:01 PM Knee X-Ray 02/25/24 12:08 XR knee LT 3V HISTORY: 43 years-old Female fall, knee pain acute left knee pain status post fall COMPARISON: None TECHNIQUE: 3 views of the left knee FINDINGS: Abnormal appearance of the left tibial plateau with suspected acute nondisplaced slightly depressed articular fracture. Moderate sized joint effusion. Joint spaces are preserved. Soft tissue swelling is most pronounced medially. IMPRESSION: Suspected acute lateral tibial plateau fracture with joint effusion. Correlation with CT recommended. ACT 112: Negative or not required by law. The above report was generated using voice recognition software. It may contain grammatical, syntax or spelling errors. Electronically signed by: Deacon Salguero M.D. 02/25/2024 1:02 PM Wrist X-Ray 02/25/24 12:08 XR wrist LT min 3V routine HISTORY: 43 years-old Female fall, possible open fx acute pain left wrist status post fall COMPARISON: None TECHNIQUE: 3 views of the left wrist FINDINGS: There is an acute comminuted intra-articular displaced and angulated distal radial fracture with apex volar angulation and dorsal displacement of the proximalr 2 cm. Moderate soft tissue swelling. No additional acute fracture or dislocation identified. Mild osteoarthritis. IMPRESSION: Acute comminuted, angulated and displaced intra-articular distal radial fracture. ACT 112: Negative or not required by law. The above report was generated using voice recognition software. It may contain grammatical, syntax or spelling errors. Electronically signed by: Deacon Salguero M.D. 02/25/2024 1:[address] 02/25/24 13:01 CT wrist LT wo con HISTORY: 43 years-old Female fx. preop acute pain in left wrist status post fall COMPARISON: Wrist radiographs of same day TECHNIQUE: Multiple axial CT images of the left wrist were obtained without IV contrast. A dose lowering technique was used consistent with the principals of ALARA. FINDINGS: Study is motion degraded. There is an acute comminuted intra-articular displaced and angulated distal radial fracture with apex volar angulation and dorsal displacement of approximately 2 cm. Moderate soft tissue swelling. A subcentimeter fracture fragment is noted adjacent to the distal ulna. There is an equivocal acute nondisplaced distal ulnar fracture. Scaphoid appears intact. Mild osteoarthritis. IMPRESSION: 1. Acute comminuted, angulated and displaced intra-articular distal radial fracture. 2. Equivocal acute nondisplaced distal ulnar fracture. ACT 112: Negative or not required by law. The above report was generated using voice recognition software. It may contain grammatical, syntax or spelling errors. Electronically signed by: Deacon Salguero M.D. 02/25/2024 2:[address] 02/25/24 13:17 CT knee LT wo con HISTORY: 43 years-old Female suspected tibial plateau fx on xray acute left knee pain COMPARISON: Radiographs of same day TECHNIQUE: Multiple axial CT images of the left knee were obtained without IV contrast. A dose lowering technique was used consistent with the principals of ALARA. FINDINGS: There is confirmation of the acute intra-articular lateral tibial plateau fracture which is comminuted with articular depression measuring up to approximately 5 mm. Longitudinal components of the fracture extend into the lateral tibial metaphysis. No additional acute fracture or dislocation. No large displaced intra-articular fracture fragments are seen. Moderate sized lipohemarthrosis. No dislocation. Tendons and ligaments are not well evaluated by CT technique. IMPRESSION: 1. Confirmation of the acute comminuted lateral tibial plateau fracture with articular depression. 2. Moderate sized lipohemarthrosis. ACT 112: Negative or not required by law. The above report was generated using voice recognition software. It may contain grammatical, syntax or spelling errors. Electronically signed by: Deacon Salguero M.D. 02/25/2024 1:56 PM
[2024-02-25] MEDS: ACETAMINOPHEN 500 MG TAB PO SCH (22:06)
[2024-02-25] MEDS: SENNA 8.6 MG TAB PO SCH (22:07)
[2024-02-25] MEDS: DOCUSATE SODIUM 100 MG CAP PO SCH (22:07)
[2024-02-25] MEDS: oxyCODONE HCL IR 5 MG TAB (IMMEDIATE RELEASE) PO PRN (22:12)
[2024-02-25] MEDS: SODIUM CHLORIDE 0.9% 1,000 ML IV SCH (22:12)
[2024-02-25] MEDS: CLINDAMYCIN/D5W 600 MG/50 ML BAG IV SCH (23:04)
[2024-02-26 08:46] LABS: Hematocrit (blood only) 35.7 % (37.0-47.0); Hemoglobin 11.6 g/dl (12.0-16.0); Mean Corpuscular Hemoglobin 28.2 pg (25.0-34.0); Mean Corpuscular Hgb Conc 32.5 g/dL (32.0-36.0); Mean Corpuscular Volume 86.7 fL (80.0-100.0); Mean Platelet Volume 11.1 fL (9.4-12.4); Platelet Count 289 K/uL (130-400); RDW Coefficient of Variation 14.3 % (11.5-14.5); RDW Standard Deviation 44.8 fL (36.4-46.3); Red Blood Count 4.12 M/uL (4.20-5.40); White Blood Count 10.07 K/ul (4.8-10.8)
[2024-02-26] MEDS: ENOXAPARIN INJ 40 MG/0.4 ML SYR SQ SCH (08:48)
[2024-02-26] MEDS: MULTIVITAMIN TAB PO SCH (08:48)
--- NOTE | 2024-02-26 08:59 | Hospitalist Progress Note ---
Date of Service February 26, 2024 Assessment & Plan (1) Open fracture of bone of left wrist: Plan: F Plan Pt is a 43yoF with PMHx significant for GERD, mood disorder, RLS admitted with Left radial and tibial fracture. Medicine was consulted for medical management. Traumatic left radial fracture Traumatic left tibia fracture s/p left wrist I&D and ORIF distal radius due to open fracture on 02/24 preop hgb of 13, currently stable at 11 Pain and wound management per ortho/primary team PT/OT as appropriate DVT prophylaxis per ortho/primary team Monitor H&H for acute blood loss anemia Per primary team: " NWB LLE with platform walker. OOB to chair. Continue pain control. Check wounds tomorrow. Continue Clindamycin for 48 total due to open fracture DVT prophylaxis: TEDs 3 weeks, foot pumps while in hospital, 40 mg Lovenox for 6 weeks. PT/OT. D/C planning." Mood disorder stable ongoing tobacco abuse Diet: Regular DVT prophylaxis: Lovenox subcu as per primary Dispo: Per primary Admission and Anticipated Discharge Date Admission Date: February 25, 2024 Subjective pt was seen sitting in chair States that her pain is controlled notes fracture in left arm and leg Review of Systems Review of Systems: All systems reviewed & are unremarkable except as noted in Subjective Physical Exam Physical Exam: General: Alert, oriented. No acute distress Skin: No noted rashes or bruises Psych: Appropriate mood and affect Neuro: No gross deficits HEENT: NC/AT CV: RRR Resp: Breath sounds clear bilaterally, no increased effort of breathing. Abdomen: Soft, nontender Extremities: Bandaged left arm and leg Results & Data Results & Data Vital Signs (Past 12 Hours) Vital Signs Temp Pulse Resp BP Pulse Ox O2 Del Method O2 Flow Rate 02/26/24 06:51 37.0 C 78 16 107/70 92 Nasal Cannula 2 02/26/24 03:23 37 C 75 18 125/82 95 Nasal Cannula 2 02/25/24 23:29 37.1 C 86 18 120/79 95 Room Air 2 02/25/24 22:40 37 C 95 H 18 133/85 97 Nasal Cannula 2 02/25/24 22:17 Nasal Cannula 2 02/25/24 22:17 37 C 82 16 118/72 94 Nasal Cannula 2 02/25/24 21:27 36.5 C 81 18 118/83 99 Nasal Cannula 2 02/25/24 21:00 37.1 C 84 18 118/77 99 Room Air Diagnostic Findings Wrist X-Ray 02/25/24 00:00 FL wrist LT 2V CLINICAL HISTORY: LEFT WRIST ORIF COMPARISON STUDY: CT of same day FLUOROSCOPY TIME: 16.8 seconds FLUOROSCOPY IMAGES: 2 EXPOSURE DOSE: 0.38 mGy FINDINGS: Status post placement of plate and screw fusion fixating the acute comminuted intra-articular distal radial fracture with near-anatomic alignment. Expected postoperative soft tissue swelling with deep tissue air. IMPRESSION: Fluoroscopic assistance as above. ACT 112: Negative or not required by law. Electronically signed by: Deacon Salguero M.D. 02/25/2024 6:46 PM Elbow X-Ray 02/25/24 12:08 XR elbow LT min 3V routine HISTORY: 43 years-old Female fall acute left elbow pain status post fall COMPARISON: None TECHNIQUE: 3 views of the left elbow FINDINGS: Mild dorsal soft tissue swelling. There is no acute fracture, dislocation or large joint effusion. IMPRESSION: No acute fracture. ACT 112: Negative or not required by law. The above report was generated using voice recognition software. It may contain grammatical, syntax or spelling errors. Electronically signed by: Deacon Salguero M.D. 02/25/2024 1:01 PM Knee X-Ray 02/25/24 12:08 XR knee LT 3V HISTORY: 43 years-old Female fall, knee pain acute left knee pain status post fall COMPARISON: None TECHNIQUE: 3 views of the left knee FINDINGS: Abnormal appearance of the left tibial plateau with suspected acute nondisplaced slightly depressed articular fracture. Moderate sized joint effusion. Joint spaces are preserved. Soft tissue swelling is most pronounced medially. IMPRESSION: Suspected acute lateral tibial plateau fracture with joint effusion. Correlation with CT recommended. ACT 112: Negative or not required by law. The above report was generated using voice recognition software. It may contain grammatical, syntax or spelling errors. Electronically signed by: Deacon Salguero M.D. 02/25/2024 1:02 PM Wrist X-Ray 02/25/24 12:08 XR wrist LT min 3V routine HISTORY: 43 years-old Female fall, possible open fx acute pain left wrist status post fall COMPARISON: None TECHNIQUE: 3 views of the left wrist FINDINGS: There is an acute comminuted intra-articular displaced and angulated distal radial fracture with apex volar angulation and dorsal displacement of the proximalr 2 cm. Moderate soft tissue swelling. No additional acute fracture or dislocation identified. Mild osteoarthritis. IMPRESSION: Acute comminuted, angulated and displaced intra-articular distal radial fracture. ACT 112: Negative or not required by law. The above report was generated using voice recognition software. It may contain grammatical, syntax or spelling errors. Electronically signed by: Deacon Salguero M.D. 02/25/2024 1:[address] 02/25/24 13:01 CT wrist LT wo con HISTORY: 43 years-old Female fx. preop acute pain in left wrist status post fall COMPARISON: Wrist radiographs of same day TECHNIQUE: Multiple axial CT images of the left wrist were obtained without IV contrast. A dose lowering technique was used consistent with the principals of ALARA. FINDINGS: Study is motion degraded. There is an acute comminuted intra-articular displaced and angulated distal radial fracture with apex volar angulation and dorsal displacement of approximately 2 cm. Moderate soft tissue swelling. A subcentimeter fracture fragment is noted adjacent to the distal ulna. There is an equivocal acute nondisplaced distal ulnar fracture. Scaphoid appears intact. Mild osteoarthritis. IMPRESSION: 1. Acute comminuted, angulated and displaced intra-articular distal radial fracture. 2. Equivocal acute nondisplaced distal ulnar fracture. ACT 112: Negative or not required by law. The above report was generated using voice recognition software. It may contain grammatical, syntax or spelling errors. Electronically signed by: Deacon Salguero M.D. 02/25/2024 2:[address] 02/25/24 13:17 CT knee LT wo con HISTORY: 43 years-old Female suspected tibial plateau fx on xray acute left knee pain COMPARISON: Radiographs of same day TECHNIQUE: Multiple axial CT images of the left knee were obtained without IV contrast. A dose lowering technique was used consistent with the principals of ALARA. FINDINGS: There is confirmation of the acute intra-articular lateral tibial plateau fracture which is comminuted with articular depression measuring up to approximately 5 mm. Longitudinal components of the fracture extend into the lateral tibial metaphysis. No additional acute fracture or dislocation. No large displaced intra-articular fracture fragments are seen. Moderate sized lipohemarthrosis. No dislocation. Tendons and ligaments are not well evaluated by CT technique. IMPRESSION: 1. Confirmation of the acute comminuted lateral tibial plateau fracture with articular depression. 2. Moderate sized lipohemarthrosis. ACT 112: Negative or not required by law. The above report was generated using voice recognition software. It may contain grammatical, syntax or spelling errors. Electronically signed by: Deacon Salguero M.D. 02/25/2024 1:56 PM
[2024-02-26 09:04] LABS: BUN Creatinine Ratio 8.9 (10-20); Calcium 8.1 mg/dl (8.6-10.3); Creatinine Clr Calc Pharmacy 105.2 ml/min; Est GFR (Non-African American) 92.3 ml/min; Potassium 3.8 mmol/L (3.5-5.1)
--- NOTE | 2024-02-26 09:37 | Orthopedic Progress Note ---
Date of Service February 26, 2024 Assessment & Plan (1) Open fracture of bone of left wrist: Plan: POD #1 s/p left wrist I&D and ORIF distal radius due to open fracture, doing as well as expected. Resume diet. NWB LLE with platform walker. OOB to chair. Continue pain control. Check wounds tomorrow. Ua concerning, will check Urine Culture, pending Continue Clindamycin for 48 total due to open fracture DVT prophylaxis: TEDs 3 weeks, foot pumps while in hospital, 40 mg Lovenox for 6 weeks. PT/OT. D/C planning. Admission and Anticipated Discharge Date Admission Date: February 25, 2024 Subjective Left wrist and knee pain Physical Exam Physical Exam: LUE: Splint/dressing clean, dry, intact. BCR < 2 sec. Sensation to light touch intact except slight diminished sensation to small finger. Able to move fingers and thumb. LLE: 2+ Dp pulse. Sensation to light touch intact distally. Able to wiggle toes and ankle up and down. Knee immobilizer in place. Results & Data Vital Signs (Past 12 Hours) Vital Signs Temp Pulse Resp BP Pulse Ox O2 Del Method O2 Flow Rate 02/26/24 06:51 37.0 C 78 16 107/70 92 Nasal Cannula 2 02/26/24 03:23 37 C 75 18 125/82 95 Nasal Cannula 2 02/25/24 23:29 37.1 C 86 18 120/79 95 Room Air 2 02/25/24 22:40 37 C 95 H 18 133/85 97 Nasal Cannula 2 02/25/24 22:17 Nasal Cannula 2 02/25/24 22:17 37 C 82 16 118/72 94 Nasal Cannula 2 Laboratory Results 02/26/24 02/25/24 Range/Units 08:12 12:13 WBC 10.07 9.51 (4.8-10.8) K/ul RBC 4.12 L 4.70 (4.20-5.40) M/uL Hgb 11.6 L 13.0 (12.0-16.0) g/dl Hct 35.7 L 40.0 (37.0-47.0) % MCV 86.7 85.1 (80.0-100.0) fL MCH 28.2 27.7 (25.0-34.0) pg MCHC 32.5 32.5 (32.0-36.0) g/dL RDW Std Deviation 44.8 43.3 (36.4-46.3) fL RDW Coeff of Edna 14.3 14.0 (11.5-14.5) % Plt Count 289 353 (130-400) K/uL MPV 11.1 10.5 (9.4-12.4) fL Immature Gran % (Auto) 0.4 % Neut % (Auto) 58.5 % Lymph % (Auto) 31.2 % [place] % (Auto) 5.8 % Eos % (Auto) 3.5 % Baso % (Auto) 0.6 % Neut # (Auto) 5.56 (1.40-6.50) K/uL Lymph # (Auto) 2.97 (1.20-3.40) K/uL [place] # (Auto) 0.55 (0.11-0.59) K/uL Eos # (Auto) 0.33 (0.00-0.50) K/uL Baso # (Auto) 0.06 (0.00-0.20) K/uL Immature Gran # (Auto) 0.04 (0.01-0.20) K/uL Sodium 138 139 (136-145) mmol/L Potassium 3.8 3.7 (3.5-5.1) mmol/L Chloride 107 106 (98-107) mmol/L Carbon Dioxide 26 26 (21-32) mmol/L Anion Gap 5 7 (3-11) BUN 7 8 (6-23) mg/dl Creatinine 0.79 1.05 (0.6-1.2) mg/dl Est Cr Clr Drug Dosing 105.2 75.7 ml/min Est GFR ( Amer) 107.0 75.9 ml/min Est GFR (Non-Af Amer) 92.3 65.5 ml/min BUN/Creatinine Ratio 8.9 L 7.6 L (10-20) Glucose 107 H 128 H (70-99(Fasting)) mg/dl Calcium 8.1 L 8.9 (8.6-10.3) mg/dl Total Bilirubin 0.6 (0.2-1.0) mg/dl AST 15 (13-39) U/L ALT 14 (7-52) U/L Alkaline Phosphatase 49 (34-104) U/L Total Protein 7.0 (6.0-8.3) gm/dl Albumin 3.9 (3.4-5.0) gm/dl Globulin 3.1 (2.5-4.0) gm/dl Albumin/Globulin Ratio 1.3 (0.9-2) HCG, Qual Negative (Negative)
[2024-02-26] MEDS ORDERED: AZTREONAM 2,000 MG in DEXTROSE 5% MINI-B 100 ML IV SCH (18:00)
[2024-02-27 08:18] LABS: Basophils # (auto) 0.03 K/uL (0.00-0.20); Basophils % (auto) 0.4 %; Eosinophils # (auto) 0.13 K/uL (0.00-0.50); Eosinophils % (auto) 1.6 %; Hematocrit (blood only) 37.9 % (37.0-47.0); Hemoglobin 12.2 g/dl (12.0-16.0); Immature Granulocytes # (auto) 0.03 K/uL (0.01-0.20); Immature Granulocytes % (auto) 0.4 %; Lymphocytes # (auto) 1.77 K/uL (1.20-3.40); Lymphocytes % (auto) 21.6 %; Mean Corpuscular Hemoglobin 27.5 pg (25.0-34.0); Mean Corpuscular Hgb Conc 32.2 g/dL (32.0-36.0); Mean Corpuscular Volume 85.4 fL (80.0-100.0); Mean Platelet Volume 10.7 fL (9.4-12.4); Monocytes # (auto) 0.63 K/uL (0.11-0.59); Monocytes % (auto) 7.7 %; Neutrophils # (auto) 5.59 K/uL (1.40-6.50); Neutrophils % (auto) 68.3 %; Platelet Count 290 K/uL (130-400); RDW Standard Deviation 43.7 fL (36.4-46.3); Red Blood Count 4.44 M/uL (4.20-5.40); White Blood Count 8.18 K/ul (4.8-10.8)
[2024-02-27 08:37] LABS: BUN Creatinine Ratio 9.5 (10-20); Calcium 8.4 mg/dl (8.6-10.3); Creatinine Clr Calc Pharmacy 112.3 ml/min; Est GFR (African American) 115.8 ml/min; Est GFR (Non-African American) 99.9 ml/min; Potassium 3.6 mmol/L (3.5-5.1)
[2024-02-27 09:40] LABS: Appearance Urine Clear (Clear); Bilirubin Urine Negative (Negative); Blood Urine Negative (Negative); Color Urine Yellow; Glucose Urine UA Negative (Negative); Ketones Urine Negative (Negative); Leukocyte Esterase Urine Negative (Negative); Nitrite Urine Negative (Negative); Protein Urine Negative (Negative); Specific Gravity Urine 1.009 (1.000-1.030); Urobilinogen Urine Negative (Negative); pH Urine 6.5 (4.5-7.5)
--- NOTE | 2024-02-27 13:41 | Orthopedic Progress Note ---
Date of Service February 27, 2024 Assessment & Plan (1) Closed fracture of lateral portion of tibial plateau: Plan: Continue nonweightbearing status. The patient was changed to a postop brace that is hinged, to avoid further irritation on the backside of her thigh. She was shown how to lock and unlock the brace. It was set at 0-40 degrees. (2) Open fracture of bone of left wrist: Plan: The patient's dressings were changed today. Keep the fiberglass splint in place at all times. Ice and elevate the arm frequently to reduce pain and swelling. She may start Zithromax 250 mg orally on a daily basis for the open fracture. Will do this for at least a week. Continue with PT. She will have to use a platform walker for ambulation. Awaiting insurance approval for [facility]. Follow-up in the office in a week for a recheck of her wound. She should not put any weight on the hand or wrist. She may use Tylenol and Motrin every 6 hours as needed for mild pain. Admission and Anticipated Discharge Date Admission Date: February 25, 2024 Supervising Physician Co-Signing Physician Notes I, Dr. Keller, saw and examined the patient. I discussed the management with my PA. I reviewed my PAs note and agree with the documented findings and attest to completing the substantive portion of medical decision making and plan of care I developed. Subjective This 43-year-old female is seen today in her room. She is 2 days status post ORIF of a left comminuted intra-articular distal radius fracture. She states her pain is tolerable. She also has a known left tibial plateau fracture. She states the knee immobilizer is digging into the backside of her thigh, and has caused a blister and abrasion. She is wondering whether another brace can be obtained. She did work with physical therapy this morning. She has been nonweightbearing on the left leg due to the tibial plateau fracture. She denies any chest pain, shortness of breath, nausea, vomiting, or abdominal pain. No additional complaints. Physical Exam Physical Exam: General: Well-developed, well-nourished, middle-aged female, in no acute distress. Laying in bed. Alert and oriented. Skin: Warm and dry with good turgor. No rashes. She has a splint in place on the left wrist. This was removed by Dr. Keller and reapplied. She has an abrasion on the backside of her thigh from the knee immobilizer. Skin slough is present. No surrounding erythema. Musculoskeletal: The patient has intact motor function of her shoulder, elbow, and digits. She has intact motor function of the left lower extremity as well. Good hip flexion, knee flexion, and ankle range of motion. She is able to set her quad and perform a straight leg raise. She continues to have discomfort with palpation over the lateral aspect of her left knee. Neurologic: Gross sensation is intact across each of the digits of the left hand as well as the left leg by soft touch. Capillary refill is equal for the fingers. Peripheral pulses are 2+ in the left leg. Results & Data Vital Signs (Past 12 Hours) Vital Signs Temp Pulse Resp BP Pulse Ox O2 Del Method 02/27/24 11:20 37.1 C 67 18 138/86 94 Room Air 02/27/24 07:13 37.2 C 93 H 16 116/84 93 Room Air Laboratory Results CBC obtained this morning shows a white count of 8.18, an H&H of 12.2 and 37.9, And platelets of 290,000. Electrolytes are unremarkable. BUN of 7 with creatinine 0.74. Glucose this morning is 107.
--- NOTE | 2024-02-27 15:00 | Hospitalist Progress Note ---
Date of Service February 27, 2024 Assessment & Plan (1) Open fracture of bone of left wrist: (2) Closed fracture of lateral portion of tibial plateau: Plan Pt is a 43yoF with PMHx significant for GERD, mood disorder, RLS admitted with Left radial and tibial fracture. Medicine was consulted for medical management. Traumatic left radial fracture Traumatic left tibia fracture s/p left wrist I&D and ORIF distal radius due to open fracture on 02/24 preop hgb of 13, currently stable at 12.2 Pain and wound management per ortho/primary team PT/OT as appropriate DVT prophylaxis per ortho/primary team Monitor H&H for acute blood loss anemia Completed perioperative antibiotics Per primary team: " NWB LLE with platform walker. OOB to chair. Continue pain control. Check wounds tomorrow. Continue Clindamycin for 48 total due to open fracture DVT prophylaxis: TEDs 3 weeks, foot pumps while in hospital, 40 mg Lovenox for 6 weeks. PT/OT. D/C planning." Mood disorder stable ongoing tobacco abuse Diet: Regular DVT prophylaxis: Lovenox subcu as per primary Dispo: awaiting auth for rehab at [facility] A total of 45 minutes was spent coordinating, documenting, and providing care for this patient excluding time spent in the performance of separately billed services. This included personally viewing all current laboratories and imaging studies, medication reconciliation, outpatient chart review, and discussion with specialists. Admission and Anticipated Discharge Date Admission Date: February 25, 2024 Subjective Patient was seen and examined in 383. Follow-up open left radial fracture status post I&D and left tibial fracture. Overall pain is controlled. She states that her left lower extremity brace was tight and resulted in a blister that ruptured on the back of her left leg. Overall her appetite is good. She has not had a bowel movement in 2 to 3 days which is unusual for her. She denies fever, chills, sweats, lightheadedness, dizziness, chest pain, shortness of breath, abdominal pain. Review of Systems Review of Systems: All systems reviewed & are unremarkable except as noted in HPI & below Physical Exam Physical Exam: Gen: WD/WN, F, sitting up in bed, NAD, A&O x3 HEENT: Normocephalic, atraumatic, conjunctivae moist, sclerae anicteric, mucous membranes moist. Lung: Clear to Auscultation bilaterally, no wheezes/rales/rhonchi Heart: Regular rate, regular rhythm, no murmurs, rubs, or gallops Abdomen: Soft, NT, ND +BS x 4 Extremities: No edema, LLE splint in place, LUE splint in place, nvi distally Skin: Warm, no rash, negative turgor. Results & Data Results & Data Vital Signs (Past 12 Hours) Vital Signs Temp Pulse Resp BP Pulse Ox O2 Del Method 02/27/24 11:20 37.1 C 67 18 138/86 94 Room Air 02/27/24 07:13 37.2 C 93 H 16 116/84 93 Room Air Laboratory Results I have independently reviewed and interpreted patient's labs cbc and urinalysis Medications Administered Current Inpatient Medications Acetaminophen (Acetaminophen 500 Mg Tab) 1,000 mg PO Q8 RANDI Stop: 03/26/24 21:59 Last Admin: 02/27/24 13:09 Dose: 1,000 mg Al Hydrox/Mg Hydrox/Simethicone (Aluminum/Magnesium Susp 30 Ml Udc) 15 ml PO Q4H PRN PRN Reason: Heartburn Stop: 03/26/24 20:20 Bisacodyl (Bisacodyl 10 Mg Supp) 10 mg NM DAILY PRN PRN Reason: Constipation Stop: 03/26/24 20:20 Diphenhydramine HCl (Diphenhydramine 50 Mg/Ml Vial) 25 mg IV Q8H PRN PRN Reason: Itching Stop: 03/26/24 20:20 Docusate Sodium (Docusate Sodium 100 Mg Cap) 100 mg PO BID RANDI Stop: 03/26/24 20:59 Last Admin: 02/27/24 07:06 Dose: 100 mg Enoxaparin Sodium (Enoxaparin Inj 40 Mg/0.4 Ml Syr) 40 mg SQ Q24H RANDI Stop: 03/27/24 08:59 Last Admin: 02/27/24 07:05 Dose: 40 mg Hydromorphone HCl (Hydromorphone Inj 0.5 Mg/0.5 Ml Syr) 0.5 mg IV Q2H PRN PRN Reason: Pain or Pre PT Stop: 03/10/24 20:20 Magnesium Hydroxide (Magnesium Hydroxide Susp 30 Ml Udc) 30 ml PO Q6H PRN PRN Reason: Constipation Stop: 03/26/24 20:20 Metoclopramide HCl (Metoclopramide Hcl Inj 5 Mg/Ml 2 Ml Vial) 10 mg IV Q6H PRN PRN Reason: Nausea And Vomiting Stop: 03/26/24 20:20 Miscellaneous (Order Awaiting Action: Woody Castro) 1 each N/A QS [facility] Stop: 04/03/24 00:00 Multivitamins (Multivitamin Tab) 1 tab PO QAM [facility] Stop: 03/27/24 08:59 Last Admin: 02/27/24 07:06 Dose: 1 tab Naloxone HCl (Naloxone Hcl 0.4 Mg/1 Ml Vial/Carp) 0.1 mg IV Q5M PRN PRN Reason: Oversedation/Resp Depression Stop: 03/26/24 20:20 Ondansetron HCl (Ondansetron Inj 2 Mg/Ml 2 Ml Vial) 4 mg IV Q6H PRN PRN Reason: Nausea And Vomiting Stop: 03/26/24 20:20 Oxycodone HCl (Oxycodone Hcl Ir 5 Mg Tab (Immediate Release)) 5 - 10 mg PO Q4H PRN PRN Reason: Pain or Pre PT Stop: 03/10/24 20:20 Last Admin: 02/26/24 17:02 Dose: 10 mg Pantoprazole Sodium (Pantoprazole 40 Mg Tab) 40 mg PO DAILY PRN; Protocol PRN Reason: Heartburn Stop: 03/26/24 20:22 Sennosides (Senna 8.6 Mg Tab) 17.2 mg PO HS [facility] Stop: 03/26/24 20:59 Last Admin: 02/26/24 19:55 Dose: 17.2 mg
--- NOTE | 2024-02-29 09:38 | Discharge Summary ---
Date of Service February 29, 2024 Admission HPI Per Admitting Provider This 43 year old female arrived to the ED on 02/24 for evaluation of left wrist pain. Patient stated that she fell after she was bumped by a dog. She lost her balance and fell onto her left side. She tried to catch herself with her left wrist. She noted pain and deformity at the left wrist with some bleeding from a puncture wound. Patient also notes pain in the left knee and left elbow. She denied any other injury. Pain reported to be a 9 out of 10. Patient took no medication for this. Unsure when her last tetanus was. Patient does note history of fracture of the left wrist that was treated nonoperatively years ago. Admission Exam (Per Admitting) Const Other: General: Well-developed, well-nourished, obese middle-aged female, in no acute distress. Obvious discomfort. Laying on the bed. Alert and oriented. Skin: Warm and dry with good turgor. No rashes. The patient has a puncture maynor present on the volar surface of her left wrist with active bleeding. No bone is visible. It is in the area of her known fracture. No intra-articular effusion in the left knee. No ecchymosis. Extensive tattoos. Heart: Heart RRR. No MGR. Peripheral pulses are 2+. Lungs: The patient has expiratory rhonchi present in all sawyer. No crackles or rubs. Fair air movement. Abdomen: Obese. Bowel sounds present x 4. Soft nontender. No organomegaly. No masses. Musculoskeletal: Left knee evaluation reveals no intra-articular effusion. She has full terminal extension. Flexion to only around 45/50 degrees secondary to pain. Stable collateral ligaments with MCL and LCL stressing. No palpable defect in the patellar tendon or quadriceps tendon. She is able to perform a straight leg raise with pain. Intact motor function of the ankle. Left upper extremity evaluation reveals no pain with palpation over the clavicle, glenohumeral joint, humerus, or elbow. She has exquisite discomfort with palpation over the distal radius and distal ulna. Visible deformity is present. No pain with palpation over the metacarpals or digits. Motor function of the fingers is intact but is limited secondary to wrist pain. Thumb circumduction and opposition are intact. Neurologic: Gross sensation is intact across the upper and lower extremities by soft touch. Radial, median, and ulnar nerve functions are intact for both motor and sensory on the left arm. Specialty Data Orthopedic X-ray and CT scan imaging of the knee was obtained. There is confirmation of the acute comminuted lateral tibial plateau fracture with articular depression. Also moderate sized lipohemarthrosis. X-ray and CT scan imaging of the wrist was obtained. It shows a comminuted intra-articular distal radius fracture with displacement. Discharge Data Consultations 02/25/24 20:21 Consult Hospitalist Routine Procedures Performed Operation Date: 02/25/24 15:30 Actual Procedures p Open Reduction Internal Fixation of Left Wrist Open Distal Radius Fracture(Left) - Gene Keller MD s Irrigation and Debridement Left Wrist - Gene Alexander Keller MD Hospital Course (1) Closed fracture of lateral portion of tibial plateau: The patient was admitted through the ED on 02/25/2024 for urgent irrigation and debridement with ORIF of the left distal radius. She underwent successful surgery with excellent alignment and fixation of the wrist fracture. Left knee was also evaluated while under general anesthesia. No ligamentous injury was noted. She was placed in a knee immobilizer for stability. The patient was splinted postoperatively taken to recovery. She recovered well. The rest of her night on 02/24 was uneventful. The hospitalist team was consulted for medical management. She remained on her normal daily medications of Abilify and omeprazole. On 02/25 the patient was reevaluated. Pain was adequately controlled. She was able to eat her meals without nausea. She continued on IV clindamycin for 48 hours. She had no episodes of chest pain, shortness of breath, nausea, vomiting, headache, or neck pain. The patient was able to participate with physical therapy and remain nonweightbearing on the left leg while in her brace. Platform walker was ordered. The rest of the day was uneventful. Her labs were unremarkable. On 02/26 the patient was reevaluated. She was noted to have an abrasion developing on the posterior thigh from her knee immobilizer. The patient was switched to a postop brace with a range set at 040. She was shown how to lock and unlock the brace. Her postsurgical dressing on the left wrist was changed. The wound looked healthy. There were no signs of infection. Expected postoperative ecchymosis and edema was present. She was placed back in a fiberglass splint for protection. The patient was able to participate in physical therapy may nonweightbearing on the left leg. She was more comfortable in the postop brace. IV clindamycin was finished. She was started on Zithromax 250 mg daily due to the open fracture. She will continue with this for a week. Follow-up in the office with Dr. Keller on 03/04 for reevaluation of her wound. On the evening of 02/26, the patient was accepted to [facility] and authorized by her insurance. She was transferred there for continued therapy. She remained afebrile during her entire stay. The patient had several episodes of mild hypertension during her stay. She should follow-up with her PCP for reevaluation and possible treatment. (2) Open fracture of bone of left wrist:
== END 2024-02-27 18:08 | DRG 511 ==
LOC: ED 11:33 → OR 15:16 → 3N 19:12